=== PATIENT | male | born 1965 | race American Indian/Alaskan Native ===

== ENCOUNTER 2020-03-23 22:49 | Inpatient (IN) | payer BC, OTHER ==
[~2020-03-23] VITALS: Ht 190.5 cm; Wt 126.8 kg
--- OUTSIDE RECORDS SUMMARY | ~2020-03-23 | XMS | Encounter Summary ---
Demographics + + + | Address | [address] | | | [place] [address] | + + + | Home Phone | | + + + | Preferred Language | Unknown | + + + | Marital Status | Unknown | + + + | Jewish Affiliation | Unknown | + + + | Race | Unknown | + + + | Ethnic Group | Unknown | + + + Author + + + | Author | [facility] | | | and [place] | + + + | Organization | [facility] | | | and [place] | + + + | Address | Unknown | + + + | Phone | Unavailable | + + + Care Team Providers + +------+ + | Care Informal Waiter/Waitress Name | Role | Phone | + +------+ + PCP | Unavailable | + +------+ + Encounter Details +--------+ + + + + | Date | Type | Department | Care Team | Description | +--------+ + + + + | 06/17/ | Hospital | [facility] | Minh Sahu | | | 2003 | Encounter | MED CTR SLEEP | MD Emily [address] | | | | | [place] [address] | [place] [facility] | | | | | [place] | [place] [address] | | | | | [address] | [phone] | | | | | [phone] | | | +--------+ + + + + Social History + +-------+ +--------+------+ | Tobacco Use | Types | Packs/Day | Years | Date | | | | | Used | | + +-------+ +--------+------+ | Never Assessed | | | | | + +-------+ +--------+------+ + + + | Sex Assigned at | Date Recorded | | | | + + + | Not on file | | + + + documented as of this encounter Plan of Treatment Not on filedocumented as of this encounter Visit Diagnoses Not on filedocumented in this encounter"
--- OUTSIDE RECORDS SUMMARY | ~2020-03-23 | XMS | Clinical Summary ---
Demographics + + + | Address | [address] | | | [place] [address] | + + + | Home Phone | | + + + | Preferred Language | Unknown | + + + | Marital Status | Unknown | + + + | Taoism Affiliation | Unknown | + + + | Race | Unknown | + + + | Ethnic Group | Unknown | + + + Author + + + | Author | [facility] | | | and [place] | + + + | Organization | [facility] | | | and [place] | + + + | Address | Unknown | + + + | Phone | Unavailable | + + + Care Team Providers + +------+ + | Care Turntable Worker Name | Role | Phone | + +------+ + PCP | Unavailable | + +------+ + Allergies Not on File Medications Not on file Active Problems Not on file Social History + +-------+ +--------+------+ | Tobacco [...] on file | | + + + Last Filed Vital Signs Not on file Plan of Treatment + + +-------+ + | Health Maintenance | Due Date | Last | Comments | | | | Done | | + + +-------+ + | Vaccine: | | | | | Dtap/Tdap/Td (1 - | 3 | | | | Tdap) | | | | + + +-------+ + | Vaccine: Zoster (1 | | | | | of 2) | 4 | | | + + +-------+ + | Vaccine: Influenza | | | | | (#1) | 0 | | | + + +-------+ + Results Not on filefrom Last 3 Months"
--- OUTSIDE RECORDS SUMMARY | ~2020-03-23 | XMS | Encounter Summary ---
Demographics + + + | Address | [address] | | | [place] [address] | + + + | Home Phone | | + + + | Preferred Language | Unknown | + + + | Marital Status | Unknown | + + + | Synagogue Affiliation | Unknown | + + + | Race | Unknown | + + + | Ethnic Group | Unknown | + + + Author + + + | Author | [facility] | | | and [place] | + + + | Organization | [facility] | | | and [place] | + + + | Address | Unknown | + + + | Phone | Unavailable | + + + Care Team Providers + +------+ + | Care Buggy Driver Name | Role | Phone | + +------+ + PCP | Unavailable | + +------+ + Encounter Details +--------+ + + + + | Date | Type | Department | Care Team | Description | +--------+ + + + + | 12/27/ | [facility] | [facility] | Hebert Key MD | | | 2006 | Encounter | MED CTR GENERIC OP | [address], [place] | | | | | CONV DEPT [address] | [address] [place], [place] | | | | | [place], | [address] | | | | | [place] [address] | | | | | | [phone] | | | +--------+ + + + [...]
--- OUTSIDE RECORDS SUMMARY | ~2020-03-23 | XMS | Encounter Summary ---
Demographics + + + | Address | [address] | | | [place] [address] | + + + | Home Phone | | + + + | Preferred Language | Unknown | + + + | Marital Status | Unknown | + + + | Restorationism Affiliation | Unknown | + + + | Race | Unknown | + + + | Ethnic Group | Unknown | + + + Author + + + | Author | [facility] | | | and [place] | + + + | Organization | [facility] | | | and [place] | + + + | Address | Unknown | + + + | Phone | Unavailable | + + + Care Team Providers + +------+ + | Care Senior It Specialist Name | Role | Phone | + +------+ + PCP | Unavailable | + +------+ + Encounter Details +--------+ + + + + | Date | Type | Department | Care Team | Description | +--------+ + + + + | 12/27/ | [facility] | [facility] | Hebert Key MD | | | 2006 | Encounter | MED CTR GENERIC OP | [address], [place] | | | | | CONV DEPT [address] | [address] [place], [place] | | | | | [place], | [address] | | | | | [place] [address] | | | | | | [phone] | | | +--------+ + + + [...]
--- OUTSIDE RECORDS SUMMARY | ~2020-03-23 | XMS | Clinical Summary ---
Demographics + + + | Address | [address] | | | [place] [address] | + + + | Home Phone | | + + + | Preferred Language | Unknown | + + + | Marital Status | Unknown | + + + | Shinto Affiliation | Unknown | + + + | Race | Unknown | + + + | Ethnic Group | Unknown | + + + Author + + + | Author | [facility] | | | and [place] | + + + | Organization | [facility] | | | and [place] | + + + | Address | Unknown | + + + | Phone | Unavailable | + + + Care Team Providers + +------+ + | Care Rotor Pilot Name | Role | Phone | + [...]
--- OUTSIDE RECORDS SUMMARY | ~2020-03-23 | XMS | Encounter Summary ---
Demographics + + + | Address | [address] | | | [place] [address] | + + + | Home Phone | | + + + | Preferred Language | Unknown | + + + | Marital Status | Unknown | + + + | Muslim Affiliation | Unknown | + + + | Race | Unknown | + + + | Ethnic Group | Unknown | + + + Author + + + | Author | [facility] | | | and [place] | + + + | Organization | [facility] | | | and [place] | + + + | Address | Unknown | + + + | Phone | Unavailable | + + + Care Team Providers + +------+ + | Care College Scouting Coordinator Name | Role | Phone | + +------+ + PCP | Unavailable | + +------+ + Encounter Details +--------+ + + + + | Date | Type | Department | Care Team | Description | +--------+ + + + + | 06/17/ | Hospital | [facility] | Minh Sahu | | | 2003 | Encounter | MED CTR SLEEP | MD Emily [address] | | | | | [place] [address] | [place] [facility] | | | | | [place] | [place] [address] | | | | | [address] | [phone] | | | | | [phone] | | | +--------+ + + + [...]
--- OUTSIDE RECORDS SUMMARY | ~2020-03-23 | XMS | Encounter Summary ---
Demographics + + + | Address | [address] | | | [place] [address] | + + + | Home Phone | | + + + | Preferred Language | Unknown | + + + | Marital Status | Unknown | + + + | Voodoo Affiliation | Unknown | + + + | Race | Unknown | + + + | Ethnic Group | Unknown | + + + Author + + + | Author | [facility] | | | and [place] | + + + | Organization | [facility] | | | and [place] | + + + | Address | Unknown | + + + | Phone | Unavailable | + + + Care Team Providers + +------+ + | Care Balling Machine Operator Name | Role | Phone | + +------+ + PCP | Unavailable | + +------+ + Encounter Details +--------+ + + + + | Date | Type | Department | Care Team | Description | +--------+ + + + + | 05/07/ | Hospital | [facility] | Minh Sahu | | | 2004 | Encounter | MED CTR SLEEP | MD Emily [address] | | | | | [place] [address] | [place] [facility] | | | | | [place] | [place] [address] | | | | | [address] | [phone] | | | | | [phone] | | | +--------+ + + + [...]
--- OUTSIDE RECORDS SUMMARY | ~2020-03-23 | XMS | Clinical Summary ---
Demographics + + + | Address | [address] | | | [place] [address] | + + + | Home Phone | | + + + | Preferred Language | Unknown | + + + | Marital Status | Unknown | + + + | Christian Affiliation | Unknown | + + + | Race | Unknown | + + + | Ethnic Group | Unknown | + + + Author + + + | Author | [facility] | | | and [place] | + + + | Organization | [facility] | | | and [place] | + + + | Address | Unknown | + + + | Phone | Unavailable | + + + Care Team Providers + +------+ + | Care White Hat Hacker Name | Role | Phone | + [...]
--- OUTSIDE RECORDS SUMMARY | ~2020-03-23 | XMS | Encounter Summary ---
Demographics + + + | Address | [address] | | | [place] [address] | + + + | Home Phone | | + + + | Preferred Language | Unknown | + + + | Marital Status | Unknown | + + + | Mandaen Affiliation | Unknown | + + + | Race | Unknown | + + + | Ethnic Group | Unknown | + + + Author + + + | Author | [facility] | | | and [place] | + + + | Organization | [facility] | | | and [place] | + + + | Address | Unknown | + + + | Phone | Unavailable | + + + Care Team Providers + +------+ + | Care Auto Seat Cover Installer Name | Role | Phone | + +------+ + PCP | Unavailable | + +------+ + Encounter Details +--------+ + + + + | Date | Type | Department | Care Team | Description | +--------+ + + + + | 12/27/ | [facility] | [facility] | Hebert Key MD | | | 2006 | Encounter | MED CTR GENERIC OP | [address], [place] | | | | | CONV DEPT [address] | [address] [place], [place] | | | | | [place], | [address] | | | | | [place] [address] | | | | | | [phone] | | | +--------+ + + + [...]
--- OUTSIDE RECORDS SUMMARY | ~2020-03-23 | XMS | Encounter Summary ---
Demographics + + + | Address | [address] | | | [place] [address] | + + + | Home Phone | | + + + | Preferred Language | Unknown | + + + | Marital Status | Unknown | + + + | Orthodox Affiliation | Unknown | + + + | Race | Unknown | + + + | Ethnic Group | Unknown | + + + Author + + + | Author | [facility] | | | and [place] | + + + | Organization | [facility] | | | and [place] | + + + | Address | Unknown | + + + | Phone | Unavailable | + + + Care Team Providers + +------+ + | Care Recreational Sports Director Name | Role | Phone | + +------+ + PCP | Unavailable | + +------+ + Encounter Details +--------+ + + + + | Date | Type | Department | Care Team | Description | +--------+ + + + + | 05/07/ | Hospital | [facility] | Minh Sahu | | | 2004 | Encounter | MED CTR SLEEP | MD Emily [address] | | | | | [place] [address] | [place] [facility] | | | | | [address] | [place] [address] | | | | | [address] | [phone] | | | | | [phone] | | | +--------+ + + + [...]
--- OUTSIDE RECORDS SUMMARY | ~2020-03-23 | XMS | Encounter Summary ---
Demographics + + + | Address | [address] | | | [place] [address] | + + + | Home Phone | | + + + | Preferred Language | Unknown | + + + | Marital Status | Unknown | + + + | Rastafari Affiliation | Unknown | + + + | Race | Unknown | + + + | Ethnic Group | Unknown | + + + Author + + + | Author | [facility] | | | and [place] | + + + | Organization | [facility] | | | and [place] | + + + | Address | Unknown | + + + | Phone | Unavailable | + + + Care Team Providers + +------+ + | Care Mock Up Maker Name | Role | Phone | + +------+ + PCP | Unavailable | + +------+ + Encounter Details +--------+ + + + + | Date | Type | Department | Care Team | Description | +--------+ + + + + | 05/07/ | Hospital | [facility] | Minh Sahu | | | 2004 | Encounter | MED CTR SLEEP | MD Emily [address] | | | | | [place] [address] | [place] [facility] | | | | | [address] [place] | [place] [address] | | | | | [address] | [phone] | | | | | [phone] | | | +--------+ + + + [...]
--- OUTSIDE RECORDS SUMMARY | ~2020-03-23 | XMS | Encounter Summary ---
Demographics + + + | Address | [address] | | | [place] [address] | + + + | Home Phone | | + + + | Preferred Language | Unknown | + + + | Marital Status | Unknown | + + + | Quaker Affiliation | Unknown | + + + | Race | Unknown | + + + | Ethnic Group | Unknown | + + + Author + + + | Author | [facility] | | | and [place] | + + + | Organization | [facility] | | | and [place] | + + + | Address | Unknown | + + + | Phone | Unavailable | + + + Care Team Providers + +------+ + | Care Adjunct Sociology Professor Name | Role | Phone | + +------+ + PCP | Unavailable | + +------+ + Encounter Details +--------+ + + + + | Date | Type | Department | Care Team | Description | +--------+ + + + + | 06/17/ | Hospital | [facility] | Minh Sahu | | | 2003 | Encounter | MED CTR SLEEP | MD Emily [address] | | | | | [place] [address] | [place] [facility] | | | | | [place] [place] | [place] [address] | | | | | [address] | [phone] | | | | | [phone] | | | +--------+ + + + [...]
[~2020-03-23 22:49] MED LIST: ACETAMINOPHEN325 M1 PO; ADVIL200 M1 PO; FISH OIL 1,0001 EAC1 PO; FLONASE2 SPRAY NS; FLUTICASONE PRO16 GM NS; LEVOTHYROXINE100 MCG PO; LIPITOR10 MG PO; LISINOPRIL10 MG PO; LISINOPRIL5 MG PO; LORATADINE10 MG PO; MOBIC7.5 MG PO; NASACORT10.8 ML NAS; NORCO 10-325 T1 EACH PO; NORCO 5-325 TA1 EACH PO; OMEPRAZOLE20 MG PO; VITAMIN D31000 UNIT PO; VITAMIN D5000 UNIT PO; ZESTRIL5 MG PO
--- NOTE | 2020-03-24 04:30 | NUR ---
PT TO ROOM 116 VIA STRETCHER. ALERT AND ORIENTED. ABLE TO TRANSFER SELF TO BED. GAIT STEADY. ORDERS RECEIVED. IVF INFUSING. O2 2L/NC PLACED FOR HX SLEEP APNEA. PT DENIES PAIN OR NAUSEA. BOWEL TONES HYPOACTIVE. ORIENTATION TO ROOM AND NURSE CALL LIGHT GIVEN. PT DENIES QUESTIONS OR CONCERNS. WHITE BOARD UPDATED. CALL LIGHT IN REACH.
--- NOTE | 2020-03-24 09:10 | NUR ---
PT IN BED AFTER AB XRAY. DENIES PAIN. BOLUS RUNNING. ADMINISTERED MORNING MEDS. FINGDING SCD MACHINE AND THEN WILL APPLY. BT ACTIVE. HAD REBECCA GONZALEZ.
--- NOTE | 2020-03-24 09:48 | NUR ---
PATIENT RESTING IN BED. DOES NOT WANT TO AMBULATE TO CHAIR. CALL LIGHT WITHIN REACH. NO FURTHER NEEDS AT THIS TIME.
--- NOTE | 2020-03-24 10:35 | NUR ---
PT CALLED FOR BEEPING PUMP. BOLUS COMPLETED. DENIES FURTHER CONERNS.
--- NOTE | 2020-03-24 11:39 | NUR ---
PT RESTING WITH EYES CLOSED. LIGHTLY SNORING. IVF RUNNING.
--- NOTE | 2020-03-24 13:11 | NUR ---
PATIENT RESTING IN BED. INDEPENDENT IN THE ROOM. CALL LIGHT WITHIN REACH. NO FURTHER NEEDS AT THIS TIME.
--- NOTE | 2020-03-24 14:00 | NUR ---
PT PUMP BEEPING. FIXED AND OFFERED TO MOVE IV TO DIFFERENT LOCATION. PT DECLINED ATT.
--- NOTE | 2020-03-24 16:08 | NUR ---
IN ROOM TALKING TO PT AND HIS REGARDING CURRENT ILLNESS. DR ATKINS IN ROOM TO DISCUSS XRAY WITH PT. ANSWERED QUESTIONS. GAVE PT ICE WATER AND JELLO. INSTRUCTED TO GO SLOW.
--- NOTE | 2020-03-24 16:13 | HP ---
[facility] [address] [place], [place] [address] Signed ADMISSION DATE: 03/24/2020 DATE OF VISIT: March 24, 2020, REASON FOR ADMISSION: Small bowel obstruction. 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 He began having mid abdominal pain early in the afternoon, which was sharp and constant more on the left than on the right with vomiting at least three times without associated diarrhea. He had not had similar symptoms in the past. He has had two hernia repairs at the same site due to recurrence by Dr. Soria in the past year. This was noted with a supraumbilical incision. Review of the operative report on October of 2019 describes a recurrent supraumbilical hernia 5 x 2 cm with use of intraabdominal 11 x 14 cm mesh. This was described as an 11 x 14 cm oval Ventrio mesh(? Ventralex). Interrupted sutures were used with Prolene. The patient was evaluated by Dr. Pastrana in the strip picker hours and was admitted to my service with findings on CT scan consistent with small-bowel obstruction. My review of his CT scan shows a fair amount of inflammatory changes in the region of the previous hernia repair. There was no abrupt transition point there, however. Interpretation by the radiologist confirming dilated fluid-filled loops of small bowel showing a gradual transition point to the anterior abdomen. Notably, there were enlarged bilateral iliac chain lymph nodes right greater than left with concern for possible metastatic disease. A plan for nasogastric tube was made; however, he does not have one in place at this time. He is said to have had bleeding and pain and so forth and prior sinus surgery and therefore, he has been for the past number of hours on the desir without a nasogastric tube. He does feel better in fact. He has had no nausea or vomiting and has had some diarrhea. REVIEW OF SYSTEMS: He denies any shortness of breath or chest pain. Still has mild pain in the mid abdomen. PHYSICAL EXAMINATION: GENERAL: Large white man appears to be comfortable. Electronically Signed By: JOSELYN ATKINS MD 03/24/20 1613 PATIENT NAME: GREGORIA CHAMPION HISTORY AND PHYSICAL DATE OF : 63 REPORT #: [id number] PHYSICIAN: JOSELYN ATKINS MD PCP: MARILEE DALY REPORT IS CONFIDENTIAL AND NOT TO BE RELEASED WITHOUT AUTHORIZATION [facility] [address] [place], [place] [address] Signed VITAL SIGNS: He is 6 feet 3 inches tall, 126 kg. BMI is 34.9, temperature is 98.3, pulse 99, blood pressure 143/94, room air saturations 90%. COVID test is pending. Trachea is midline. He has an overbite. Has markedly dry mucous membranes. ABDOMEN: Somewhat obese, but generally soft. There is a well-healed supraumbilical incision with no sign of palpable hernia. EXTREMITIES: Show no clubbing, cyanosis, or edema. LABORATORY DATA: At 11:00 p.m. last night, white count of 11.4, hematocrit 54.3, platelets 221,000. Chem profile is essentially normal, but creatinine is elevated to 1.17. Electrolytes are normal. Albumin is 5.3, total protein 8.6. Urine shows specific gravity 1.025, 5 white cells per high-power field. COVID test is pending. I have reviewed the CT scan in detail as well as the report and so on. ASSESSMENT: The patient is considered to have low-grade bowel obstruction with transition point likely at the site of previous recurrent epigastric hernia repair. Note is made of implantation of mesh in the area. This may resolve on its own and continued bowel rest and IV fluids would be appropriate. We will obtain an abdominal x-ray this morning to assess for distention of the bowel. If he still has significant need for nasogastric tube (which he might well), I will place it myself as I am quite confident I can place it effectively. He will need DVT prophylaxis as well and a bolus of fluid as he is clinically still dehydrated. MD RICHARD Wheatley/MODL /[id number] cc: Marilee Pastrana MD Electronically Signed By: JOSELYN ATKINS MD 03/24/20 1613 PATIENT NAME: GREGORIA CHAMPION HISTORY AND PHYSICAL DATE OF : 63 REPORT #: [id number] PHYSICIAN: JOSELYN ATKINS MD PCP: MARILEE DALY REPORT IS CONFIDENTIAL AND NOT TO BE RELEASED WITHOUT AUTHORIZATION [address] [address] Signed Emerson Soria MD Copies: MARILEE DALY SHELDON MD BOWER, ANDREW L MD ~ Electronically Signed By: JOSELYN ATKINS MD 03/24/20 1613 PATIENT NAME: GREGORIA CHAMPION HISTORY AND PHYSICAL DATE OF : 63 REPORT #: [id number] PHYSICIAN: JOSELYN ATKINS MD PCP: MARILEE DALY REPORT IS CONFIDENTIAL AND NOT TO BE RELEASED WITHOUT AUTHORIZATION
--- NOTE | 2020-03-24 17:37 | NUR ---
PT'S IV CONTINUALLY BEEPING, TOO CLOSE TO AC. PLACED NEW ONE IN BACK OF RIGHT HAND. PT TOLERATED WELL. REMOVED OLD IV.
--- NOTE | 2020-03-24 20:03 | NUR ---
REPORT RECEIVED FROM DAY SHIFT RN. PT LYING IN BED, ALERT AND ORIENTED. DENIES PAIN OR NAUSEA. IVF INFUSING. CL LIQ PROVIDED. NO FURTHER NEEDS AT THIS TIME. WHITE BOARD UPDATED. CALL LIGHT IN REACH.
--- NOTE | 2020-03-24 20:39 | PATH ---
[facility] [address] [facility] [place], [place] [address] Signed ORDERING PHYSICIAN: Alonzo Johnston MD PATIENT NAME: GREGORIA CHAMPION GENDER: Abel : 1965 SPECIMEN(S): No Source Given MOLECULAR PATHOLOGY RESULTS: SARS-CoV-2 Not Detected ADDITIONAL NOTES.: The [place] Fusion SARS-CoV-2 Assay is a multiplex real-time PCR (RT-PCR) in vitro diagnostic test intended for the qualitative detection of RNA from SARS-CoV-2 from individuals who meet COVID-19 clinical and/or epidemiological criteria. In general, SARS-CoV-2 RNA can be detected during the acute phase of infection. Positive results indicate the presence of SARS-CoV-2 RNA. Clinical correlation with patient history and other diagnostic information is necessary to determine patient infection status. Positive results do not rule out bacterial infection or co-infection with other viruses. Negative results do not preclude SARS-CoV-2 infection and should not be used as the sole basis for patient management decisions. Negative results must be combined with other clinical observations, patient history, and epidemiological information. The [place] Fusion SARS-CoV-2 Assay is not yet approved or cleared by the [place] FDA. When there are no FDA-approved or cleared tests available, and other criteria are met, FDA can make tests available under an emergency access mechanism called an Emergency Use Authorization (EUA). The EUA for this test is supported by the [place] of Health and Human Service's (HHS's) declaration that circumstances exist to justify the emergency use of in vitro diagnostics for the detection and/or diagnosis of the virus that causes COVID-19. This EUA will remain in effect for the duration of the COVID-19 declaration justifying emergency of IVDs, unless it is terminated or revoked by FDA, after which the test may no longer be used. The [place] Fusion SARS-CoV-2 Assay is for use only under EUA in US laboratories certified under the Clinical Laboratory Improvement Amendments of 1988 (CLIA) to perform high complexity tests. [facility] is certified under CLIA to perform high complexity PATIENT NAME: GREGORAI CHAMPION PATHOLOGY DATE OF : 63 REPORT #: [id number] PHYSICIAN: MEE HAM PCP: PATRICIA DALY REPORT IS CONFIDENTIAL AND NOT TO BE RELEASED WITHOUT AUTHORIZATION [facility] [address] [place] [id number] Signed clinical laboratory testing. PERFORMING LABORATORY.: Molecular testing was performed by [facility] [address] [place], [place] [address] [address] (Steel Division Supervisor: Miguel Soto D.O.; CLIA#: [id number]) Diagnostician: System Interface Pathologist Electronically Signed 03/24/2020 Copies: ~ PATIENT NAME: GREGORIA CHAMPION PATHOLOGY DATE OF : 63 REPORT #: [id number] PHYSICIAN: MEE PATHOLOGY PCP: PATRICIA DALY REPORT IS CONFIDENTIAL AND NOT TO BE RELEASED WITHOUT AUTHORIZATION
--- NOTE | 2020-03-24 21:25 | NUR ---
EVENING ASSESSMENT COMPLETE. MEDICATIONS ADMINISTERED PER EMAR. PT DENIES PAIN OR NAUSEA. REPORTS PASSING GAS. BOWEL TONES ACTIVE. LIQUID BM X 1 THIS EVENING. VS AND I&O COMPLETE. CLEAR LIQUIDS PROVIDED. NO FURTHER NEEDS. CALL LIGHT IN REACH.
--- NOTE | 2020-03-25 00:45 | NUR ---
PT FRANCISCA SOLORZANO INDEPENDENTLY. HANH WELL. DENIES NEEDS.
--- NOTE | 2020-03-25 02:34 | NUR ---
PT RESTING IN BED WITH EYES CLOSED, NAD.
--- NOTE | 2020-03-25 05:10 | NUR ---
PT SITTING IN RECLINER. VS AND I&O COMPLETE. PRN ADMINISTERED FOR C/O HEAD ACHE. CL LIQ PROVIDED. PT DENIES ABD PAIN OR NAUSEA. BOWEL TONES ACTIVE. REPORTS PASSING GAS. NO FURTHER NEEDS. CALL LIGHT IN REACH.
--- NOTE | 2020-03-25 07:20 | NUR ---
BACK FROM DI, NO C/O PAIN OR N/V, WALKING IN ROOM
--- NOTE | 2020-03-25 08:39 | NUR ---
PATIENT UP IN CHAIR. DECLINED AM CARE. INDEPENDENT IN ROOM. WHITE BOARD UPDATED. CALL LIGHT WITHIN REACH. NO FURTHER NEEDS AT THIS TIME.
--- NOTE | 2020-03-25 09:45 | NUR ---
DR ATKINS IN ROOM, IV SA PER ORDERS, PT TO BE PLACED ON REG DIET A TRIAL, EXPLAINED TO PT BY BOTH DR ATKINS AND THIS RN, STATED UNDERSTANDING. UP IN CHAIR, COOP WITH ASSESSMENT, NO C/O PAIN, ON ROOM AIR.
--- NOTE | 2020-03-25 12:00 | NUR ---
WALKING INROOM, NO C/O N/V ORPAIN. EATING SNDWICH, CALL LIGHT AT BEDSIDE, TOLERATING FLUIDS WELL, OM REGULAR DIET
--- NOTE | 2020-03-25 13:11 | NUR ---
pt up in chair, viewing i phone, denies c/o pain or n/v. tolerating his sandwich, no emesis. fluids and call light at bedside
--- NOTE | 2020-03-25 13:19 | NUR ---
PATIENT UP IN CHAIR. INDEPENDENT IN ROOM. AMBULATED IN HALLWAY. CALL LIGHT WITHIN REACH. NO FURTHER NEEDS AT THIS TIME.
--- NOTE | 2020-03-25 15:25 | NUR ---
IN CHAIR, VISITING WITH FAMILY, NO C/O PAIN, NO N/V, FLUIDS AND CALL LIGHT AT BEDSIDE
--- NOTE | 2020-03-25 16:45 | NUR ---
DC INSTRUCTIONS GIVEN VERBAL AND WRITTEN, STATED UNDERSTANDING, NO C/O PAIN OR N/V. ALL QUESTIONS R/T DIET AND S/SX TO CALL MD FOR ANSWERED. BOTH AND PT STATED UNDERSTANDING. IV DC'D TIP INTACT. 2X2 IN PLACE R THI. ELAINE PHARMACIST IN ROOM TALKING TO PT ABOUT DC MEDS. STATED UNDERSTANDING. PT STATED HE ORDERED DINNER AND WILL CALL WHEN HE IS DONE AND READY TO BE DC'D
--- NOTE | 2020-03-26 18:24 | DS ---
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 He had been having mid abdominal pain early in the afternoon, which worsened over time, associated with vomiting at least 3 times without associated diarrhea. He has had 2 hernias repaired in the supraumbilical area (epigastric hernias) by Dr. Saravanan Valdez in the past year. Review of his operative report of October of 2019 described recurrent supraumbilical hernia, which was 5 x 2 cm. An intraabdominal mesh 11 x 14 cm was implanted described as a Ventrio mesh. Interrupted sutures were used. Evaluation by Dr. Pastrana showed findings on CT scan consistent with small-bowel obstruction. The area of inflammation of the prior hernia repair appears to be the area of transition. It is not an abrupt transition, however, dilated fluid-filled loops of small bowel showing gradual transition to the anterior abdomen were noted and therefore, considered to have bowel obstruction on that basis. He was noted additionally to have bilateral enlarged iliac chain lymph nodes on the right greater than the left. Close review of these nodes showed them to be only 1.5 cm in size and thus extremely unlikely to be of clinical concern, and very unlikely to be metastatic cancer as was considered by the radiologist. Attempts at passage of nasogastric tube were unsuccessful. He was admitted for further evaluation and care. PERTINENT PHYSICAL EXAMINATION: GENERAL: Showed a large 6 foot 3 inches, 126 kg man. Temperature is 98.3, pulse 99, blood pressure 143/94, room air saturations were 90%. COVID test ultimately negative. ABDOMEN: Obese, but generally soft. There is a well-healed supraumbilical incision with no sign of palpable hernia. HOSPITAL COURSE: He was admitted, given fluid resuscitation and monitored. Although, he did not tolerate passage of nasogastric tube by nursing personnel, he did seem to have improvement quite promptly without one. The tube was left out on that basis. A day 2 followup KUB was ordered, which showed one dilated loop of small bowel, which had air, but it did appear improved. He was begun on a liquid diet, and by March 25, 2020, tolerating that diet well and therefore advanced a solid diet. A follow up abdominal x-ray showed resolution of small-bowel obstruction findings. He is discharged home, now tolerating a regular diet with no sign of distention, no Electronically Signed By: JOSELYN ATKINS MD 03/26/20 1824 PATIENT NAME: GREGORIA CHAMPION DISCHARGE SUMMARY DATE OF : 63 REPORT #: [id number] PHYSICIAN: JOSELYN ATKINS MD PCP: PATRICIA DALY REPORT IS CONFIDENTIAL AND NOT TO BE RELEASED WITHOUT AUTHORIZATION [address] [address] Signed abdominal pain, particularly and doing well. As the patient did have elevated serum protein and some enlargement of the iliac lymph nodes, SPEP was ordered. The serum protein electrophoresis results were pending at time of discharge. Notably, his albumin and total protein decreased with fluid resuscitation and on March 24 were noted to be total protein of 7.1 with an albumin of 4.5. His globulin was 2.6. As regards to discharge, he is advised to maintain a regular diet. If he should have recurrent symptoms suggestive of obstruction, he will call me or Dr. Valdez or return to the ER per his preference. He has no specific restrictions. DISCHARGE MEDICATIONS: 1. Omeprazole 20 mg p.o. daily. 2. Atorvastatin 10 mg p.o. daily. 3. Advil 200 mg capsule 4 tabs daily as needed for pain. 4. Synthroid 100 mcg p.o. daily. 5. Fluticasone spray as needed nasally 1-2 sprays for allergies. 6. Lisinopril 5 mg p.o. daily. 7. Tylenol 325 mg 1-2 q.4-6 hours as needed for pain. He is advised to discontinue hydrocodone ([place]). DISCHARGE DIAGNOSES: 1. Small bowel obstruction, apparently related to area of prior recurrent epigastric hernia repair. Resolution with bowel rest and intravenous fluid administration. 2. Obesity. 3. History of epigastric hernia repair. 4. Enlarged iliac lymph nodes (1.5 cm) of unlikely clinical significance. 5. Seasonal rhinitis. 6. Hypertension. 7. Gastroesophageal reflux. 8. Hypothyroidism. FOLLOWUP: We will follow up as needed for symptoms of bowel obstruction. Review of his CT scan findings of the iliac lymph nodes of only 1.5 cm are not of clinical concern in my medical opinion and I do not recommend specific follow up of them. MD RICHARD Wheatley/CITLALI /[id number] Electronically Signed By: JOSELYN ATKINS MD 03/26/20 1824 PATIENT NAME: GREGORIA CHAMPION DISCHARGE SUMMARY DATE OF : 63 REPORT #: [id number] PHYSICIAN: JOSELYN ATKINS MD PCP: PATRICIA DALY REPORT IS CONFIDENTIAL AND NOT TO BE RELEASED WITHOUT AUTHORIZATION [facility] [address] [place] [address] Signed cc: MD Ryne Vang MD Elizabeth Sieders Copies: SARAVANAN VALDEZ MD, SHELDON MD SIEDERS, ELIZABETH ~ Electronically Signed By: JOSELYN ATKINS MD 03/26/20 1824 PATIENT NAME: GREGORIA CHAMPION DISCHARGE SUMMARY DATE OF : 63 REPORT #: [id number] PHYSICIAN: JOSELYN ATKINS MD PCP: PATRICIA DALY REPORT IS CONFIDENTIAL AND NOT TO BE RELEASED WITHOUT AUTHORIZATION
== END 2020-03-25 17:40 | disposition home or self-care (01) | DRG 390 ==
LOC: ED 22:49 → MS 22:51 → ED 03-24 02:08 → MS 03-24 08:22
PROVIDERS: ADMIT Surgery
DX: K56.609 Unspecified intestinal obstruction, unspecified as to partial versus complete obstruction (principal); E66.9 Obesity, unspecified; R59.0 Localized enlarged lymph nodes; J31.0 Chronic rhinitis; I10 Essential (primary) hypertension; K21.9 Gastro-esophageal reflux disease without esophagitis; E03.9 Hypothyroidism, unspecified; Z20.828 Contact with and (suspected) exposure to other viral communicable diseases; Z68.34 Body mass index [BMI] 34.0-34.9, adult
CPT/HCPCS: 36415; 71045; 74018; 74177; 80053; 81001; 83690; 83735; 84155; 84165; 85025; 96361; 96375; 99285-25; C9803; G0378; J1170; J1200; J1644; J1790; J1885; J2405; J2550; J7030; J7121; Q9967

== ENCOUNTER 2021-03-31 16:31 | Emergency (ER) | payer BC, OTHER ==
[~2021-03-31] VITALS: Ht 190.5 cm; Wt 126.8 kg
[2021-03-31] MEDS ORDERED: RAPAFLO8 MG PO (16:56)
--- NOTE | 2021-03-31 18:47 | EKG ---
[facility] [address] [facility] [place] [address] Signed Normal sinus rhythm Left posterior fascicular block Abnormal QRS-T angle, consider primary T wave abnormality Abnormal ECG When compared with ECG of 02-NOV-2019 13:02, Left posterior fascicular block is now present Criteria for Inferior infarct are no longer present Confirmed by FIDELIA BORGES DO ([id number]) on 03/31/2021 6:46:50 PM Electronically Signed By: FIDELIA BORGES DO 03/31/21 1847 PATIENT NAME: GREGORIA CHAMPION Electrocardiogram DATE OF : 63 PHYSICIAN: FIDELIA BORGES DO REPORT #: [id number] REPORT IS CONFIDENTIAL AND NOT TO BE RELEASED WITHOUT AUTHORIZATION
== END 2021-03-31 20:02 | disposition home or self-care (01) ==
LOC: ED 16:31
DX: B34.9 Viral infection, unspecified (principal); Z20.822 Contact with and (suspected) exposure to COVID-19; E78.00 Pure hypercholesterolemia, unspecified; K21.9 Gastro-esophageal reflux disease without esophagitis; I10 Essential (primary) hypertension; Z88.8 Allergy status to other drugs, medicaments and biological substances; Z91.048 Other nonmedicinal substance allergy status; Z79.899 Other long term (current) drug therapy
CPT/HCPCS: 71045; 80053; 83735; 84484; 85025; 93005; 93010; 99285-25; C9803; U0003

== ENCOUNTER 2021-08-03 05:50 | Day surgery (SDC) | payer BC, OTHER ==
[~2021-08-03] VITALS: Ht 190.5 cm; Wt 126.0 kg
[~2021-08-03 05:50] MED LIST changes: +RAPAFLO8 MG PO
[2021-08-03] MEDS ORDERED: MULTI-VITAMIN1 EACH PO (06:04)
--- NOTE | 2021-08-03 10:07 | NUR ---
PT ALERT, ORIENTED AND SUPPORTED BY HIS ONEAL. RATHER QUIET, WHICH I FEEL IS PT'S NATURE. ALL QUESTIONS ASKED ANSWERED, ONEAL NEEDS TO GO HOME AND WILL RETURN SHORTLY. PT REQUESTED PRAYER, WILL FOLLOW NEEDED
--- NOTE | 2021-08-03 10:22 | NUR ---
08/03/21 1022 Richa Delarosa 0923 PT ARRIVED TO PACU ON 10L VIA MASK, PT REACTIVE TO PAINFUL STIMULI, VSS. ORAL AIRWAY IN PLACE AND RESP EVEN AND UNLABORED. O2 DECREASED O2 8L. 0952 PT WAKES AND OPEN HIS EYES, ORAL AIRWAY REMOVED. 0955 O2 MASK REMOVED. 1006 HOB INCREASED, PT GRAMACING AND GRABBING BED RAILS. PAIN MEDICATION GIVEN PER EMAR. EDUCATION GIVEN ON DEEP BREATHING. CBI LIGHT PINK IN COLOR AND RATE INCREASED. 1011 O2 DECREASED TO 89%, DEEP BREATHING ENCOURAGED. 1016 MD AT BEDSIDE TALKING TO PT. 1019 PT GRMACING AND REPORTS THE NEED TO VOID. PAIN MEDICAITON GIVEN PER EMAR. 1020 PT REPORTS VOID FEELING DECREASING AND PT APPEARS TO BE IN LESS PAIN.
--- NOTE | 2021-08-03 11:16 | NUR ---
PATIENT TO MED SURG AT 1050, TRANSFERRED TO BED VIA 3 STAFF. SPOUSE IN ROOM WITH PATIENT. PATIENT IS ABLE TO REPOSITION SELF IN BED. CBI IS GOING AT A SLOW DRIP TO KEEP URINE PINK. PATIENT REPORTS URETHRA PAIN OF 3/10 AND A CONSTANT URGE TO VOID. CRACKERS AND ICE WATER TO BEDSIDE TABLE.
--- NOTE | 2021-08-03 11:37 | NUR ---
PATIENT GIVEN 0.5MG IV DILAUDID FOR 4/10 URETHRA PAIN. PATIENT IS EATING CRACKERS AND SIPS OF WATER.
--- NOTE | 2021-08-03 12:17 | NUR ---
PATIENT REPORTS IMPROVED PAIN AFTER DILAUDID, IS EATING CRACKERS, NO NAUSEA. URINE IS LIGHT PINK AND DRIP SLOWED SLIGHTLY.
[2021-08-03] MEDS ORDERED: LISINOPRIL10 MG PO (13:09)
--- NOTE | 2021-08-03 14:59 | NUR ---
PATIENT IS DOING WELL, PAIN IS MINIMAL. CONTINUING SLOW DRIP CBI TO KEEP URINE WATERMELON PINK. PATIENT IS TOLERATING CRACKERS AND PUDDING, NO NAUSEA, AND HAS ORDERED A REGULAR DINNER.
--- NOTE | 2021-08-03 16:56 | NUR ---
PATIENT TITRATED TO ROOM AIR, O2 SATS ARE 96%. PATIENT GIVEN ONE PERCOCET FOR 4/10 URETHRAL PAIN. PATIENT DENIES OTHER NEEDS. URINE CONTINUES TO BE WATERMELON COLOR WITH SLOW CBI DRIP RATE.
--- NOTE | 2021-08-03 17:49 | NUR ---
medications reconciled
--- NOTE | 2021-08-03 18:18 | NUR ---
PATIENT WITH 1100 PINK URINE.
--- NOTE | 2021-08-03 18:32 | NUR ---
PATIENT IN BED WATCHING TV, VISITOR IN ROOM. VITALS AND I&O'S CHARTED. FRESH WATER GIVEN. CALL LIGHT IN REACH. NO FURTHER NEEDS AT THIS TIME.
--- NOTE | 2021-08-03 19:20 | NUR ---
REPORT RECEIVED FROM CHELLE HAJI. pt RESTING IN BED. DARK PINK COLOR IN TUBING, CBI TITRATED TO SLOW DRIP AT THIS TIME FROM CLAMPED. IVF INFUSING WNL. PRESCRIPTION PROVIDED TO SO THAT SHE CAN DROP OFF IN AM FOR PHARMACY TO FILL ORDER BEFORE PICKING pt UP. QUESTIONS ANSWERED. pt RATES PAIN 2/10, "JUST UNCOMFORTABLE". IN ROOM. CALL LIGHT IN REACH. NO ADDITIONAL REQUESTS.
[2021-08-03] MEDS ORDERED: LEVOFLOXACIN500 MG PO (19:36)
[2021-08-03] MEDS ORDERED: OXYCODONE HCL5 MG PO (19:37)
--- NOTE | 2021-08-03 21:08 | NUR ---
IN pt ROOM FOR MEDICATION ADMINISTRATION. IV SITE FLUSHED WNL. IVF INFUSING ORDERED. DE LA TORRE CARE COMPLETE. EDUCATION PROVIDED. pt ASSISTED TO REPOSITION, CHUX CHANGED, SMALL AMT SANGUINOUS DRAINAGE ON CHUX. DE [place]OR[place] DRAINING DARK PINK, MEDIUM CLOT NOTED, CBI TITRATED TO LIGHT PINK DRAINAGE. pt DENIES NEED FOR PRN PAIN MEDICATIONS AT THIS TIME. CALL LIGHT IN REACH. SPO2 WNL ON RA. VSS.
--- NOTE | 2021-08-03 22:15 | NUR ---
CHECKED ON pt. RESTING IN BED AWAKE WATCHING TV. pt RATES PAIN 3-4/10 AT THIS TIME. DENIES NEED FOR PAIN MEDICATION. CBI WITH CLEAR URINE, SOME SMALL CLOTS IN TUBE. SLOW DRIP CBI INFUSING. IVF INFUSING WNL. CALL LIGHT IN REACH.
--- NOTE | 2021-08-03 23:58 | NUR ---
CALL LIGHT ANSWERED. pt STATES UNABLE TO SLEEP DUE TO DISCOMFORT. RATES PAIN 4-5/10 IN RANDAL AREA. PRN PAIN MEDICATION ADMINISTERED. VSS. CRACKERS PROVIDED WITH PAIN MEDICATION. CBI RATE SLOWED, CLEAR URINE NOTED IN TUBING, NO CLOTS. CALL LIGHT IN REACH. IVF INFUSING WNL.
--- NOTE | 2021-08-04 02:05 | NUR ---
CALL LIGHT ANSWERED. SPD ALARM ON CPOX ALARMING, SETTINGS ADJUSTED. SPO2 WNL ON RA. ICE WATER REFILLED PER REQUEST. CBI CLAMPED AT THIS TIME, CLEAR URINE IN TUBING. CALL LIGHT IN REACH.
--- NOTE | 2021-08-04 04:04 | NUR ---
CHECKED ON pt. RESTING IN BED. DE LA TORRE DRAINING CLEAR/PINK TINGED URINE WITH CBI CLAMPED. LIGHTS OFF IN ROOM. NO DISTRESS NOTED.
--- NOTE | 2021-08-04 04:46 | NUR ---
CALL LIGHT ANSWERED. SBA TO RESTROOM FOR BM. INSTRUCTED TO USE CALL LIGHT WHEN FINISHED. pt VERBALIZES UNDERSTANDING.
--- NOTE | 2021-08-04 05:13 | NUR ---
PT UP TO BATHROOM, BRUSHED TEETH, WASHED FACE. BACK TO BED. CBI REMAINS CLAMPED, DE [place] TORRE EMPTIED. PT DENIED NEEDS AT THIS TIME. DID HAVE SOME BRIGHT RED DRAINAGE ONCE BACK TO BED, HOWEVER, DID NOT CONTINUE, URINE IS CLEAR PRIOR TO RN LEAVING ROOM.
--- NOTE | 2021-08-04 05:30 | NUR ---
pt BACK IN BED. IS AND OS COMPLETE. CBI REMAINS CLAMPED, CLEAR YELLOW URINE IN TUBING. COFFEE, WATER, CRACKERS PROVIDED. pt COMPLAINS OF INTERMITTENT PAIN AT CATHETER, OCCASIONAL FEELING BLADDER IS FULL. PRN PAIN MEDICATION ADMINISTERED FOR 3-5/10 REPORTED PAIN. CALL LIGHT WITHIN REACH. IVF INFUSING ORDERED.
--- NOTE | 2021-08-04 06:31 | NUR ---
pt RESTED WELL THIS SHIFT. COMPLAINS OF BURNING, FULLNESS INTERMITTENTLY IN BLADDER/PENIS. PRN PAIN MEDICATION FOR PAIN. CBI CLAMPED, CLEAR YELLOW URINE. BED REST THROUGHOUT SHIFT, UP TO RESTROOM X 1 FOR ATTEMPT OF BM, FLATUS ONLY. USING CALL LIGHT APPROPRIATELY. TOLERATING REGULAR DIET, NO NAUSEA.
--- NOTE | 2021-08-04 07:15 | NUR ---
THIS RN RECEIVED REPORT FROM SUKHDEEP CORBETT. PT AWAKE AND STATES THAT PAIN IS WELL CONTROLLED AT THIS TIME.
--- NOTE | 2021-08-04 09:00 | NUR ---
THIS RN IN PTS ROOM TO GIVE PT MORNING MEDS. PT STATES THAT HE IS DOING WELL. PAIN IS TOLERABLE 2-3/. CBI WAS TURNED OFF OVERNIGHT. THIS RN DISCONNETED AND CAPPED PTS DE LA TORRE. PT UNDERTANDING TEACHING AND IS JUST WAITING TO HEAR IF HIS PAIN MEDS ARE BEING FILLED.
--- NOTE | 2021-08-04 09:50 | NUR ---
It was pleasure to meet with Mateusz this morning and discuss his plan of care and patient exprience here in the hospital. Mateusz shared with me that he is very happy with his care and that he feels his care has been "very good." I asked him about his surgical experience, he said "it was good, it was very quick." When asked about his pre-op appointment he shared with me that he thought the information given pre-operitavely was "very informative" and he felt like he was prepared for his surgical experience based on the informtion give prior to the procedure. We discussed his post-operative instructions, and the need to make sure that he followed all of his post-op instructions. He shared with me that the doctor had explained the possible risks to him should he not follow the discharge instructions. Mateusz was also "happy" with the pain control he was receiving, and said "they are really staying on top of it." Mr. Pace expressed no further questions or concerns.
--- NOTE | 2021-08-04 10:00 | NUR ---
THIS RN BACK IN PTS ROOM TO RECHECK PTS ANTIBIOTICS INFUSION. PT STATES THAT HE IS DOING OKAY BUT PAIN IS INCREASING TO A 5/10. THIS RN PROVIDED PT WITH 1 PAIN PILL. PT STATES THAT HIS PERSCRIPTION SHOULD BE READY SOON.
--- NOTE | 2021-08-04 11:40 | NUR ---
Brief visit with pt as he is getting ready for dc and his is on the way to pick him up. He uses [facility] and already has followup appt with Dr. Campbell. He states she has already given him dc instructions. 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 He denies needs and denies questions. Dc to home today with .
--- NOTE | 2021-08-04 19:01 | OR ---
[facility] [address] [facility] [place] [address] Signed DATE OF OPERATION: 08/03/2021 SURGEON: Magno Suarez MD PREOPERATIVE DIAGNOSIS: Trilobar benign prostatic hyperplasia with lower urinary tract symptoms. POSTOPERATIVE DIAGNOSIS: Trilobar benign prostatic hyperplasia with lower urinary tract symptoms. NAME OF PROCEDURE: Transurethral resection of the prostate. ANESTHESIA: General. ESTIMATED BLOOD LOSS: 20 mL. COMPLICATIONS: None. DRAINS: A 22-Burmese three-way Sanabria catheter, connected to continuous bladder irrigation. SPECIMENS: Prostate chips sent to the lab for evaluation. INDICATIONS FOR PROCEDURE: Mr. Pace is a very pleasant 56-year-old gentleman who has been experiencing active prostatic enlargement with lower urinary tract symptoms for a good while now. He takes both Flomax and finasteride with only minimal improvement in his symptoms. He recently underwent diagnostic cystoscopy which revealed trilobar prostatic enlargement along with active evidence of bladder outlet obstruction. After discussion of the risks and benefits of surgery, the patient elected to undergo transurethral resection of the prostate. OPERATIVE FINDINGS: 1. The patient's urethral meatus was dilated from 20 to 30-Burmese today using Tama sounds without difficulty. Electronically Signed By: MAGNO SUAREZ MD 08/04/211900 PATIENT NAME: GREGORIA PACE OPERATIVE REPORT DATE OF : 63 REPORT #: [id number] PHYSICIAN: MAGNO SUAREZ MD PCP: PATRICIA DALY REPORT IS CONFIDENTIAL AND NOT TO BE RELEASED WITHOUT AUTHORIZATION [facility] [address] [place], [place] [address] Signed 2. Diagnostic ureteroscopy revealed moderate to severe lateral lobe hypertrophy, along with evidence of a medium sized median lobe. The middle lobe in particular was fairly hypertrophic and appeared to be actively obstructing his bladder outlet. All three lobes of the prostate were resected thoroughly today using bipolar cautery and the bipolar button without incident. 3. At the end of the procedure, a 22-Burmese three-way Sanabria catheter was inserted into the patient's bladder, and connected to continuous bladder irrigation. 4. Digital rectal examination was performed today which revealed an approximately 60 g prostate that is soft, smooth and symmetric with no evidence of focal nodularity. DESCRIPTION OF PROCEDURE: After informed consent was obtained, the patient was taken back to the operating room. He was transferred from the [facility] to the operating room table, where general anesthesia was induced. He was then placed in the dorsal lithotomy position and his genitalia were prepped and draped in a standard sterile fashion. The patient's urethral meatus was dilated from 20-Burmese to 30-Burmese using Dvaid sounds without difficulty. A 30-degree lens was then inserted into the patient's bladder using a visual obturator. A thorough diagnostic cystoscopy was then performed and I was able to easily identify the patient's bilateral ureteral orifices at that time. They did not appear to be near the patient's median lobe of the prostate. His bladder was otherwise unremarkable. I switched the visual obturator out for the resectoscope and focused my initial resection on the median lobe of the prostate. I resected a good deal of tissue off the median lobe and took down part of the bladder neck on the posterior side. I then turned my attention to both the left lobe of the prostate, followed by the right lobe of the prostate. All three lobes of the prostate were resected down to the level of the verumontanum using a bipolar loop initially, and then a bipolar button was used mostly for hemostasis. The anterior bladder neck was also resected using the bipolar loop. All the while, adequate hemostasis was achieved and maintained using bipolar electrocautery. A Lula syringe was then used to irrigate the bladder of all the prostate chips multiple times throughout the procedure. These chips were then placed in a specimen cup at the end of the procedure to be sent for pathological evaluation. Once I was satisfied with the resection, I removed the resectoscope, leaving the sheath behind. I inserted a 0.035 Sensor wire into the bladder via the sheath. The sheath was then removed fully intact, leaving the wire behind. Over the wire, I passed a 22-Burmese three-way Sanabria catheter into the patient's bladder and connected it to continuous bladder irrigation. The procedure was then terminated. The patient tolerated the procedure well without any complication. He will now be transferred to the postanesthesia care unit in stable condition. DISPOSITION: The patient will remain in Med/Surg overnight so that his continuous bladder irrigation can be slowly weaned off. He will also be given a regular diet and pain control as Electronically Signed By: MAGNO SUAREZ MD 08/04/21 4065 PATIENT NAME: GREGORIA PACE OPERATIVE REPORT DATE OF : 63 REPORT #: [id number] PHYSICIAN: MAGNO SUAREZ MD PCP: PATRICIA DALY REPORT IS CONFIDENTIAL AND NOT TO BE RELEASED WITHOUT AUTHORIZATION [address] [address] Signed needed. Once he is weaned off his CBI in the morning, he will be given one more dose of IV antibiotics. The plan is for him to be discharged to home tomorrow with a Sanabria catheter to gravity drainage. He will return to clinic this to undergo a voiding trial. MD CARLEY Garcia/CITLALI /[id number] Copies: ~ Electronically Signed By: MAGNO SUAREZ MD 08/04/211900 PATIENT NAME: GREGORIA PACE OPERATIVE REPORT DATE OF : 63 REPORT #: [id number] PHYSICIAN: MAGNO SUAREZ MD PCP: PATRICIA DALY REPORT IS CONFIDENTIAL AND NOT TO BE RELEASED WITHOUT AUTHORIZATION
--- NOTE | 2021-08-05 10:06 | PATH ---
[facility] [address] [place], [place] [address] Signed SPECIMEN(S): A PROSTATE CHIPS SPECIMEN SOURCE: A. PROSTATE CHIPS CLINICAL HISTORY: BPH, dysuria, OAB. Transurethral resection of prostate. FINAL PATHOLOGIC DIAGNOSIS: Prostate chips: - Fragments of benign prostatic tissue demonstrating glandular and stromal hyperplasia, consistent with features seen in benign prostatic hyperplasia. - Areas of chronic inflammation are identified. TWK:valerianow:C2NR MICROSCOPIC EXAMINATION: Histologic sections of all submitted blocks are examined by light microscopy. These findings, together with the gross examination, support the pathologic diagnosis. GROSS DESCRIPTION: The specimen, labeled "RF, A," and designated on the requisition "prostate chips," is received in formalin and consists of roy-pink, rubbery tissue fragments with clot material measuring 8.9 x 7.4 x 1.4 cm in aggregate and weighing 13.9 grams. Teacher'S Assistant sections are submitted in cassettes (A1-A8). AT (under the direct supervision of a pathologist) The Gross Description was prepared using a voice recognition system. The report was reviewed for accuracy; however, sound-alike word errors, addition and/or deletions may occur. If there is any question about this report, please contact Client Services. PERFORMING LABORATORY: The technical component was performed by [facility], [address] [place] [id number] (Towboat Operator: Romi Ballard MD; CLIA# [id number]). The professional interpretation was performed by [facility], [address] [place] [address]. Diagnostician: Eddie Franklin MD Pathologist PATIENT NAME: GREGORIA CHAMPION PATHOLOGY DATE OF : 63 REPORT #: [id number] PHYSICIAN: MEE PATHOLOGY PCP: PATRICIA DALY REPORT IS CONFIDENTIAL AND NOT TO BE RELEASED WITHOUT AUTHORIZATION [address] [place], [place] [address] Signed Electronically Signed 08/05/2021 Copies: ~ PATIENT NAME: GREGORIA CHAMPION PATHOLOGY DATE OF : 63 REPORT #: [id number] PHYSICIAN: MEE PATHOLOGY PCP: PATRICIA DALY REPORT IS CONFIDENTIAL AND NOT TO BE RELEASED WITHOUT AUTHORIZATION
== END 2021-08-04 12:32 | disposition home or self-care (01) ==
LOC: MS 05:50 → DS 05:50
PROVIDERS: ATTEND Urology
PROC: 0VT08ZZ Resection of Prostate, Via Natural or Artificial Opening Endoscopic (ICD-10-PCS; principal; 2021-08-03 06:45)
DX: N40.1 Benign prostatic hyperplasia with lower urinary tract symptoms (principal); N39.41 Urge incontinence; R39.12 Poor urinary stream; R35.0 Frequency of micturition; R35.1 Nocturia; N32.81 Overactive bladder; I10 Essential (primary) hypertension; E78.5 Hyperlipidemia, unspecified; G47.33 Obstructive sleep apnea (adult) (pediatric); E66.01 Morbid (severe) obesity due to excess calories; M48.061 Spinal stenosis, lumbar region without neurogenic claudication; K21.9 Gastro-esophageal reflux disease without esophagitis; G89.29 Other chronic pain; Z79.899 Other long term (current) drug therapy; Z79.890 Hormone replacement therapy; Z79.1 Long term (current) use of non-steroidal anti-inflammatories (NSAID); Z91.09 Other allergy status, other than to drugs and biological substances; Z87.891 Personal history of nicotine dependence; Z68.34 Body mass index [BMI] 34.0-34.9, adult
CPT/HCPCS: 00914; C1769; J0690; J0696; J1100; J1170; J1885; J2250; J2405; J2704; J2765; J3010; J7121

== ENCOUNTER 2022-03-27 10:09 | Emergency (ER) | payer BC, OTHER ==
[~2022-03-27] VITALS: Ht 190.5 cm; Wt 126.0 kg
[~2022-03-27 10:09] MED LIST changes: +LEVOFLOXACIN500 MG PO; +MULTI-VITAMIN1 EACH PO; +OXYCODONE HCL5 MG PO
--- OUTSIDE RECORDS SUMMARY | 2022-03-27 10:10 | XMS ---
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 Gavin has no Care Guidelines for this patient. Keny VISIT COUNT (12 MO.) 1 [facility] 2 EBENEZER Cerda TOTAL 3 NOTE: Visits indicate total known visits. ED/[facility] VISIT TRACKING (12 MO.) 03/27/2022 10:09 EBENEZER Taylor [place] TYPE: Emergency COMPLAINT: - HEAD INJURY 04/05/2021 13:[address] 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
== END 2022-03-27 13:46 | disposition home or self-care (01) ==
LOC: ED 10:09
DX: S09.90XA Unspecified injury of head, initial encounter (principal); E78.00 Pure hypercholesterolemia, unspecified; K21.9 Gastro-esophageal reflux disease without esophagitis; I10 Essential (primary) hypertension; Z88.8 Allergy status to other drugs, medicaments and biological substances; Z91.048 Other nonmedicinal substance allergy status; Z79.899 Other long term (current) drug therapy; W01.198A Fall on same level from slipping, tripping and stumbling with subsequent striking against other object, initial encounter
CPT/HCPCS: 70450; 99283-25

== ENCOUNTER 2022-03-30 11:47 | Emergency (ER) | payer BC, OTHER ==
[~2022-03-30] VITALS: Ht 190.5 cm; Wt 126.0 kg
--- OUTSIDE RECORDS SUMMARY | 2022-03-30 11:50 | XMS ---
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 - [facility] - 2 Visits in 30 Days CARE PROVIDERS There are no care providers on record at this time. Gavin has no Care Guidelines for this patient. Keny [facility] COUNT ([address] [facility] 4 NOTE: Visits indicate total known visits. ED/[facility] VISIT TRACKING (12 MO.) [facility] [place] [facility] COMPLAINT: - EYE PRESSURE, HEAD PAIN, NAUSEA 03/27/2022 10:09 EBENEZER Taylor [place] TYPE: Emergency COMPLAINT: - HEAD INJURY DIAGNOSES: - Gastro-esophageal reflux disease without esophagitis - Unspecified injury of head, initial encounter - Other nonmedicinal substance allergy status - Allergy status to other drugs, medicaments and biological substances - Fall on same level from slipping, tripping and stumbling with subsequent striking against other object, initial encounter - Essential (primary) hypertension - Pure hypercholesterolemia, unspecified - Other mcc (current) drug therapy 04/05/2021 13:56 [facility] Blu ELLIS TYPE: Emergency DIAGNOSES: - Otalgia, bilateral - Essential (primary) hypertension - Hypertension - elevated bp - Dizziness and giddiness 03/31/2021 16:32 EBENEZER [place] TYPE: Emergency COMPLAINT: - HEADACHE, EAR, EYE, BODY PAIN, FATIGUE DIAGNOSES: - Gastro-esophageal reflux disease without esophagitis - Other intermediate teacher (current) drug therapy - Other nonmedicinal substance allergy status - Essential (primary) hypertension - Allergy status to other drugs, medicaments and biological substances - Pure hypercholesterolemia, unspecified - Weakness - Viral infection, unspecified INPATIENT VISIT TRACKING (12 MO.) No inpatient visits to display in this time frame [id number]
[2022-03-30] MEDS ORDERED: ONDANSETRON ODT8 MG PO (12:31)
== END 2022-03-30 12:38 | disposition home or self-care (01) ==
LOC: ED 11:47
DX: S06.0X9A Concussion with loss of consciousness of unspecified duration, initial encounter (principal); W01.10XA Fall on same level from slipping, tripping and stumbling with subsequent striking against unspecified object, initial encounter; E78.00 Pure hypercholesterolemia, unspecified; K21.9 Gastro-esophageal reflux disease without esophagitis; I10 Essential (primary) hypertension; Z88.8 Allergy status to other drugs, medicaments and biological substances; Z79.899 Other long term (current) drug therapy
CPT/HCPCS: 99283

== ENCOUNTER 2024-05-10 17:17 | Emergency (ER) | payer BC, OTHER ==
[~2024-05-10] VITALS: Ht 190.5 cm; Wt 105.6 kg
[~2024-05-10 17:17] MED LIST changes: +D3-200050 MCG PO; +GENTAK5 ML OPTH; +HYDROCODON-ACE1 EA11 PO; +METFORMIN HCL500 M1 PO; +ONDANSETRON ODT4 MG PO; +ONDANSETRON ODT8 MG PO; +SIMVASTATIN20 MG PO; +TESTOSTERO200 MG/1 M IM; +TYLOPHEN500 MG PO
[2024-05-10] MEDS ORDERED: HYDROCODON-ACE1 EA11 PO (17:35)
[2024-05-10] MEDS ORDERED: AMLODIPINE BESYL5 MG PO (17:35)
[2024-05-10 19:41] LABS: BASOPHILS 0.6 % (0-2); EOSINOPHILS 0.1 % (0-6); HEMATOCRIT 46.6 % (35.0-50.0); HEMOGLOBIN 15.2 g/dL (12.0-18.0); LYMPHOCYTES 4.6 % (24-44); MCH 26.7 (27-36); MCHC 32.6 g/dl (30-36); MCV 81.8 fl (81-99); MONOCYTES 7.2 % (0-12); NEUTROPHILS 87.5 % (39-80); PLATELET COUNT 213 K/uL (140-440); RDW 15.7 (10.5-15.0)
[2024-05-10 19:51] LABS: INR 1.04 (0.80-1.30); PROTIME 12.9 Sec (11.2-14.2)
[2024-05-10 19:55] LABS: ALBUMIN 3.7 g/dL (3.4-5.0); ALBUMIN/GLOBULIN RATIO 1.19 (1.1-2.4); ANION GAP 14.8 (7-21); BILIRUBIN, TOTAL 0.3 ng/dL (0.2-1.0); CREATININE, SERUM 1.4 mg/dL (0.70-1.30); POTASSIUM 4.8 mmol/L (3.5-5.1); PROTEIN, TOTAL 6.8 g/dL (6.4-8.2)
[2024-05-10 19:57] VITALS: BP 128/83
== END 2024-05-10 19:57 | disposition home or self-care (01) ==
LOC: ED 17:17
PROVIDERS: Internal Medicine
DX: M96.830 Postprocedural hemorrhage of a musculoskeletal structure following a musculoskeletal system procedure (principal); E78.00 Pure hypercholesterolemia, unspecified; K21.9 Gastro-esophageal reflux disease without esophagitis; I10 Essential (primary) hypertension; Z79.84 Long term (current) use of oral hypoglycemic drugs; Z79.51 Long term (current) use of inhaled steroids; Z88.8 Allergy status to other drugs, medicaments and biological substances; Z91.048 Other nonmedicinal substance allergy status
CPT/HCPCS: 36415; 80053; 85025; 85610; 85730; 99283

== ENCOUNTER 2024-05-14 09:19 | Emergency (ER) | payer BC, OTHER ==
[~2024-05-14] VITALS: Ht 190.5 cm; Wt 127.0 kg
[~2024-05-14 09:19] MED LIST changes: +AMLODIPINE BESYL5 MG PO
--- OUTSIDE RECORDS SUMMARY | 2024-05-14 09:22 | XMS ---
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 Gavin has no Care Guidelines for this patient. Keny V[facility]IT COUNT (12 MO.) 3 [facility] NOTE: Visits indicate total known visits. ED/C VISIT TRACKING (12 MO.) 05/14/2024 09:[address] [facility] [address] Clint [place] TYPE: Emergency COMPLAINT: - WOUND CHECK 05/10/2024 17:17 EBENEZER Taylor [place] TYPE: Emergency COMPLAINT: - POST OP PROBLEM DIAGNOSES: - Allergy status to other drugs, medicaments and biological substances - Essential (primary) hypertension - Gastro-esophageal reflux disease without esophagitis - intermediate school teacher (current) use of inhaled steroids - MCFP (current) use of oral hypoglycemic drugs - Other nonmedicinal substance allergy status - Postprocedural hemorrhage of a musculoskeletal structure following a musculoskeletal system procedure - Pure hypercholesterolemia, unspecified 12/19/2023 08:04 EBENEZER Taylor [place] TYPE: Emergency COMPLAINT: - CHEST PAIN DIAGNOSES: - Acute kidney failure, unspecified - Allergy status to other drugs, medicaments and biological substances - Essential (primary) hypertension - Gastro-esophageal reflux disease without esophagitis - Hyperglycemia, unspecified - intermediate school teacher (current) 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
[2024-05-14] MEDS ORDERED: LISINOPRIL40 MG PO (09:43)
[2024-05-14] MEDS ORDERED: METFORMIN HCL750 MG PO (09:45)
[2024-05-14 10:55] VITALS: BP 137/85
== END 2024-05-14 10:56 | disposition home or self-care (01) ==
LOC: ED 09:19
DX: L76.82 Other postprocedural complications of skin and subcutaneous tissue (principal); S80.821A Blister (nonthermal), right lower leg, initial encounter; M79.89 Other specified soft tissue disorders; I10 Essential (primary) hypertension; K21.9 Gastro-esophageal reflux disease without esophagitis; Y83.8 Other surgical procedures as the cause of abnormal reaction of the patient, or of later complication, without mention of misadventure at the time of the procedure; Z88.8 Allergy status to other drugs, medicaments and biological substances; Z91.09 Other allergy status, other than to drugs and biological substances; Z79.899 Other long term (current) drug therapy; Z79.84 Long term (current) use of oral hypoglycemic drugs; Z79.890 Hormone replacement therapy; Z96.653 Presence of artificial knee joint, bilateral
CPT/HCPCS: 93971; 99283-25

== ENCOUNTER 2025-01-28 07:05 | Day surgery (SDC) | payer BC, OTHER ==
[2025-01-22 11:46] VITALS: BP 116/78
[2025-01-28] VITALS (7 sets, daily range): BP systolic 115–158; BP diastolic 64–81
[~2025-01-28] VITALS: Ht 190.5 cm; Wt 120.5 kg
[~2025-01-28 07:05] MED LIST changes: +ATORVASTATIN CA40 MG PO; +CEFAZOLIN SODIUM 3 GM/30 ML SYR IV SCH; +DRY EYE RELIEF15 ML; +GENTAMICIN SULFA5 ML OU; +IBLOOD GLUCOSE TEST STRIP 1 EA TEST VI PRN; +IBU800 MG PO; +LACTATED RINGER'S 1,000 ML IV SCH; +LIDOCAINE HCL 1% 5 ML SDV INJ ONE; +LISINOPRIL40 MG PO; +METFORMIN HCL750 MG PO; +METOPROLOL SUC100 MG PO; +MULTI VITAMIN1 EACH PO; +PROVIGIL200 MG PO; +TYLENOL EXTRA500 MG PO
[2025-01-28] MEDS ORDERED: dexmedeTOMIDine HCl 200 MCG/2 ML VIAL ONE (07:35)
[2025-01-28] MEDS ORDERED: propofoL 200 MG/20 ML VIAL ONE (07:35)
[2025-01-28] MEDS ORDERED: LIDOCAINE HCL 2% 5 ML SDV ONE (07:35)
[2025-01-28] MEDS ORDERED: ROCURONIUM BROMIDE 50 MG/5 ML SYR ONE ×2 (07:35→08:38)
[2025-01-28] MEDS ORDERED: KETAMINE in NS 50 MG/5 ML SYR ONE (07:36)
[2025-01-28 07:38] LABS: ANION GAP 11.5 (7-21); BUN/CREATININE RATIO 24.6 (6.0-28.6); CALCIUM 9.1 mg/dL (8.5-10.1); CREATININE, SERUM 1.26 mg/dL (0.70-1.30); POTASSIUM 4.5 mmol/L (3.5-5.1)
[2025-01-28] MEDS ORDERED: ondansetron HCL 4 MG TAB PO PRN (09:00)
[2025-01-28] MEDS ORDERED: AMLODIPINE BESYLATE 5 MG TAB PO SCH (09:00)
[2025-01-28] MEDS ORDERED: HYDROmorphone HCL 1 MG/ML SYR IV PRN ×2 (09:00→11:00)
[2025-01-28] MEDS ORDERED: LACTATED RINGER'S 1,000 ML IV SCH (09:00)
[2025-01-28] MEDS ORDERED: ACETAMINOPHEN 500 MG TAB PO PRN (09:00)
[2025-01-28] MEDS ORDERED: DEXTROSE 50% 50 ML SYR IV PRN ×2 (09:00)
[2025-01-28] MEDS ORDERED: GLUCAGON,HUMAN RECOMBINANT 1 MG/ML VIAL SUB-Q PRN (09:00)
[2025-01-28] MEDS ORDERED: OXYCODONE/APAP 5/325 TAB PO PRN (09:00)
[2025-01-28] MEDS ORDERED: ondansetron HCL 4 MG/2 ML VIAL IV PRN ×2 (09:00→11:00)
[2025-01-28] MEDS ORDERED: DEXTROSE 5% 1,000 ML IV PRN (09:00)
[2025-01-28] MEDS ORDERED: IBLOOD GLUCOSE TEST STRIP 1 EA TEST XX PRN (09:00)
[2025-01-28] MEDS ORDERED: lisinopriL 20 MG TAB PO SCH (09:00)
[2025-01-28] MEDS ORDERED: diphenhydrAMINE HCL 25 MG CAP PO PRN (09:00)
[2025-01-28] MEDS ORDERED: KETOROLAC TROMETHAMINE 30 MG/ML VIAL ONE (09:06)
[2025-01-28] MEDS ORDERED: DEXAMETHASONE SOD PHOS 4 MG/ML VIAL ONE (09:08)
[2025-01-28] MEDS ORDERED: ACETAMINOPHEN 1,000 MG/100 ML VIAL ONE (09:09)
[2025-01-28] MEDS ORDERED: MAGNESIUM SULFATE 1 GM/2 ML VIAL ONE ×3 (09:11)
[2025-01-28] MEDS ORDERED: fentaNYL citrate 100 MCG/2 ML VIAL ONE (09:32)
[2025-01-28] MEDS ORDERED: SUGAMMADEX SODIUM 200 MG/2 ML ML ONE (10:08)
[2025-01-28] MEDS ORDERED: ondansetron HCL 4 MG/2 ML VIAL ONE (10:09)
[2025-01-28] MEDS ORDERED: TRANEXAMIC ACID 1,000 MG/10 ML AMP ONE (10:09)
[2025-01-28] MEDS ORDERED: ePHEDrine sulfate 50 MG/ML AMP ONE (10:11)
[2025-01-28] MEDS ORDERED: Insulin Regular, Human 100 UNIT/ML ML SUB-Q PRN (10:45)
[2025-01-28] MEDS ORDERED: fentaNYL citrate 50 MCG/ML SDV ONE (10:50)
[2025-01-28] MEDS ORDERED: fentaNYL citrate 50 MCG/ML SDV IV PRN (11:00)
[2025-01-28] MEDS ORDERED: droPERidol 5 MG/2 ML VIAL IV PRN (11:00)
[2025-01-28] MEDS ORDERED: diphenhydrAMINE HCL 50 MG/ML VIAL IV PRN (11:00)
[2025-01-28] MEDS ORDERED: NALOXONE HCL 0.4 MG SYR IV PRN (11:00)
[2025-01-28] MEDS ORDERED: MIDAZOLAM HCL 2 MG/2 ML VIAL IV PRN (11:00)
--- NOTE | 2025-01-28 11:49 | NUR ---
01/28/25 1149 Samia John 1023 PT ARRIVED IN PACU NON RESPONSIVE TO NOXIOUS STIMULI WITH OPA IN PLACE. CHIN LIFT HELD BY RN. 1030 BLOOD SUGAR 185. NEW ORDERS RECEIVED. 1038 PT REACTIVE. OPA REMOVED. 1039 REGULAR INSULIN 5 UNITS GIVEN SUB Q IN R ARM. 1045 C/O BLADDER DISCOMFORT. CBI RUNNING WITH LIGHT PINK COLORED IN DRAIANGE BAG. 1051 FENTANYL 50MCG GIVEN IVP FOR BLADDER PAIN. 1105 NO CHANGE IN DISCOMFORT TO BLADDER. 1115 DILAUDID 0.5MG GIVEN IV. 1116 LAYING SUPINE AND PALPATED STOMACH AND BLADDER WITH NO DISTENTION NOTED. 1118 BLOOD SUGAR 159. 1120 SITTING HIGH ATKINSON FOR COMFORT. DILAUDID 0.5MG GIVEN IV. PT TALKING TO STAFF AND C/O BLADDER DISCOMFORT. UNABLE TO RATE PAIN. 1138 TO ROOM 109. BED PLUGGED IN AND REPORT GIVEN TO RN.
[2025-01-28] MEDS ORDERED: Insulin Regular, Human 100 UNIT/ML ML SUB-Q SCH (12:00)
[2025-01-28] MEDS ORDERED: IBLOOD GLUCOSE TEST STRIP 1 EA TEST XX SCH (12:00)
--- NOTE | 2025-01-28 12:02 | NUR ---
PATIENT TO MED SURG AT 1130 VIA BED. PATIENT DENIES PAIN, VITALS ARE WNL. CBI IS VERY SLOW DRIP, PER DR. SUAREZ, DUE TO PATIENT HAVING THIS THIN BLADDER WALL. URINE IS CLEAR YELLOW. PATIENT IS SITTING UP IN BED, SIPPING ICE WATER. LUNCH IS ORDERED. BG IS 149.
--- NOTE | 2025-01-28 13:26 | NUR ---
PATIENT IS SITTING UP IN BED, VISITING WITH FAMILY. POST OP VSS. CBI IS OFF. PATIENT ENDORSES CATHETER ASSOCIATED PRESSURE, DENIES PAIN.
--- NOTE | 2025-01-28 13:30 | NUR ---
PATIENT IS RESTING IN BED, DENIES NEEDS AND IS AWAITING HIS RIDE HOME.
--- NOTE | 2025-01-28 13:43 | NUR ---
INTO SEE PATIENT. PERSONAL HEALTH INFORMATION REVIEWED. PATIENT LIVES IN A HOUSE WITH . 3 STEPS TO GET INTO. PATIENT DENIES ANY DIFFCULTY DOING THEM. DOES NOT USE CANE, WALKER OR WHEELCHAIR BUT HAS THEM. NO OXYGEN. DOES WEAR A BIPAP THROUGH [employer]. DENIES DIFFCULTY PAYING UTILITIES OR OBTAINING FOOD. WILL HAVE DRIVE HIM AT TIME OF DISCHARGE. NO FUTHER CM NEEDS.
--- NOTE | 2025-01-28 13:51 | NUR ---
UR CLINICAL REVIEW: [facility] REVIEW MEETS EXTENDED STAY FOR TURP WITH 24 CBI [facility] EXTENDED STAY 01/28/25 @ 0854 ORDER MATCHES REG NO AUTH REQ FOR EXTENDED STAY RECOVERY PER [facility] GUIDELINES DISCHARGE TO HOME IN AM IF 24 HR CBI IS COMPLETE
[2025-01-28] MEDS ORDERED: FAMOTIDINE 20 MG TAB PO ONE (14:00)
--- NOTE | 2025-01-28 14:44 | NUR ---
LAST SET OF POST OP VITALS COMPLETE. CBI IS OFF. URINE OUTPUT IS 450.
--- NOTE | 2025-01-28 15:06 | NUR ---
VISITED DURING SPIRITUAL CARE ROUNDS. PT SUPPORTED BY IN ROOM. BOTH IN OVERALL GOOD SPIRITS. NO IMMEDIATE NEEDS. PT DECLINED OFFER OF VISIT FROM INVESTOR RELATIONS ANALYST. BIOSTATISTICS PROFESSOR PROVIDED SUPPORTIVE PRESENCE, HOSPITALITY, PRAYER, FACILITATED INTERACTION WITH THERAPY ANIMAL. PT AND EXPRESSED GRATITUDE, FAMILY CONNECTION SOURCE OF STRENGTH.
[2025-01-28] MEDS ORDERED: SEVOFLURANE 250 ML BTL INH ONE (15:21)
[2025-01-28] MEDS ORDERED: SILDENAFIL CITR50 MG PO (15:48)
[2025-01-28] MEDS ORDERED: VIAGRA50 MG PO (16:06)
[2025-01-28] MEDS ORDERED: DEPO-TESTO200 MG/1 M IM (16:07)
[2025-01-28] MEDS ORDERED: IBU800 MG PO (16:07)
[2025-01-28] MEDS ORDERED: METFORMIN HCL750 MG PO (16:08)
--- NOTE | 2025-01-28 16:11 | NUR ---
PATIENT IS RESTING IN BED, DENIES NEEDS. CBI HAS BEEN OFF FOR ONE HOUR, URINE IS CLEAR YELLOW.
[2025-01-28] MEDS ORDERED: FAMOTIDINE 20 MG TAB ONE ×2 (16:13→16:16)
--- NOTE | 2025-01-28 16:42 | NUR ---
medications reconciled using pharmacy records and patient interview
--- NOTE | 2025-01-28 18:02 | NUR ---
PATIENT SITTING UP IN BED WATCHING TV AT THIS TIME, IN ROOM. VITALS AND I&O'S DONE AND CHARTED. CALL LIGHT IN REACH. NO FURTHER NEEDS AT THIS TIME.
--- NOTE | 2025-01-28 18:49 | NUR ---
PATIENT REPORTS 11/29 AFTER PERCOCET.
--- NOTE | 2025-01-28 19:27 | NUR ---
RECEIVED REPORT. PT ALERT, WATCHING TV WITH SUPPORTIVE AND DAUGHTER AT BEDSIDE. PT REPORTS PAIN IS NOT IMPROVED AFTER PREVIOUS PAIN MEDICATION. RATES PAIN 4/10 WITH SPIKES UP TO 7/10. CALL LIGHT IN REACH
--- NOTE | 2025-01-28 20:04 | NUR ---
VITALS, ASSESSMENT. GIVEN IV DILAUDID 0.5MG AND ICE PACK FOR PAIN UNIMPROVED FROM PREVIOUS PRNS. PT DENIES NAUSEA, OTHER SX. GIVEN SALTINE CRACKERS PER REQUEST. CALL LIGHT IN REACH
--- NOTE | 2025-01-28 21:44 | NUR ---
SCD PUMP ALARMING, PLUGGED INTO POWER AT THIS TIME. pt SITTING UP IN BED LOOKING AT CELL PHONE. DENIES NEEDS. URINE CLEAR IN DE LA TORRE TUBING. CALL LIGHT IN REACH.
--- NOTE | 2025-01-28 22:26 | NUR ---
EVENING BLOOD GLUCOSE, GIVEN 1 UNIT INSULIN REGULAR. PAIN IMPROVED FROM EARLIER. NO OTHER NEEDS, CALL LIGHT INREACH
--- NOTE | 2025-01-29 00:10 | NUR ---
EMPTIED CATHETER BAG. PT RESTING WITH EYES CLSOED, RISE ADN FALL OF CHEST NOTED. CALL LIGHT IN REACH
[2025-01-29 01:58] VITALS: BP 120/65
--- NOTE | 2025-01-29 02:07 | NUR ---
VITALS, 2ND ASSESSMENT, I&OS. PT C/O INCREASING PAIN, GIVEN PRN PERCOCET. DECLINES OTHER NEEDS, CALL LIGHT IN REACH
--- NOTE | 2025-01-29 04:36 | NUR ---
PT ALERT IN BED. REFILLED ICE WATER. NO OTHER NEEDS, CALL LIGHT IN REACH
[2025-01-29 05:21] VITALS: BP 122/69
[2025-01-29] MEDS ORDERED: CEFTRIAXONE SODIUM 1 GM in SODIUM CHLORIDE 0.9% 100 ML IV SCH (07:00)
--- NOTE | 2025-01-29 07:34 | NUR ---
MORNING REPORT RECIEVED FROM CHELLE RIVERA. PT SITTING UP IN BED AWAKE AND ALERT AT THIS TIME. PT HAS A DULL PAIN IN HIS LOWER BLADDER AREA, BUT PT THINKS IT WAS BE THE CATH. PT HAS BEEN VOIDING WNL AMOUNT OF URINE, URINE CLEAR AND YELLOW WITH SLIGHT PINK TINGE, CBI CLAMPED SINCE LAST NIGHT AT 1800. PT HAS NO CONCERNS OR NEED FOR PAIN MEDICATION AT THIS TIME CALL LIGHT IN REACH.
[2025-01-29] MEDS ORDERED: OXYCODONE HCL5 MG PO (07:35)
[2025-01-29] MEDS ORDERED: LEVOFLOXACIN500 MG PO (07:36)
--- NOTE | 2025-01-29 09:21 | NUR ---
PLAN TO DC HOME WITH TODAY, NO CM NEEDS.
[2025-01-29 09:30] VITALS: BP 120/70
--- NOTE | 2025-01-29 10:55 | NUR ---
PT DC'D HOME, PT WAS PICKED UP BY THEIR SPOUSE, PT WAS EDUCATED ON CATH CARE AND ALL QUESTIONS ANSWERED ABOUT FOLLOW UP APPOINTMENTS. PT HAS N OCURRENT CONCERNS AND INSTRUCTED TO CALL MD NERI OFFICE IF ANY QUESTIONS OCCUR.
--- NOTE | 2025-01-29 11:04 | NUR ---
PT TRANSPORTED VIA WHEELCHAIR VAN, PT REPORT CALLED TO [facility], REPORT GIVEN TO VENKAT. ALL QUESTIONS ANSWERED.
[2025-01-29] MEDS ORDERED: OXYBUTYNIN CHLOR5 MG PO (17:42)
--- NOTE | 2025-01-30 13:18 | PATH ---
[facility] [address], [place] [address] Signed SPECIMEN(S): A BLADDER BIOPSIES SPECIMEN(S): B PROSTATE CHIPS SPECIMEN SOURCE: A. BLADDER BIOPSIES B. PROSTATE CHIPS CLINICAL HISTORY: Gross hematuria, bladder tumor, BPH with LUTS FINAL PATHOLOGIC DIAGNOSIS: A. Bladder, biopsies - Inflamed urothelial mucosa, negative for for malignancy. B. Prostate chips, transurethral resection - Nodular hyperplasia (BPH). AMB MICROSCOPIC EXAMINATION: Histologic sections of all submitted blocks are examined by light microscopy. These findings, together with the gross examination, support the pathologic diagnosis. GROSS DESCRIPTION: A. The specimen, labeled and designated "Katelynn R., papillary masses bladder biopsies per requisition," is received in formalin and consists of a single roy tissue fragment measuring 0.5 cm in greatest dimension. The specimen is entirely submitted in cassette A1. B. The specimen, labeled and designated "Katelynn, R., prostate chips per requisition," is received in formalin and consists of a 9 g, 5 x 3.8 x 1.7 cm aggregate of roy-pink rubbery tissue fragments. All fragments are homogeneous in color, shape, and texture. The specimen is submitted entirely in cassette B1 through B4. AA (under the direct supervision of a pathologist) The Gross Description was prepared using a voice recognition system. The report was reviewed for accuracy; however, sound-alike word errors, addition and/or deletions may occur. If there is any question about this report, please contact Client Services. ADDITIONAL NOTES: Immunohistochemical and/or in situ hybridization studies if performed in this case included appropriate positive controls that reacted as expected. This PATIENT NAME: GREGORIA CHAMPION PATHOLOGY DATE OF : 63 REPORT #: [id number] PHYSICIAN: MEE HAM PCP: PATRICIA DALY PAC REPORT IS CONFIDENTIAL AND NOT TO BE RELEASED WITHOUT AUTHORIZATION [facility] [address], [place] [address] Signed test was developed and its performance characteristics determined by [employer]. It has not been cleared or approved by the U.S. Food and Drug Administration. The FDA has determined that such clearance or approval is not necessary. This test is used for clinical purposes. It should not be regarded as investigational or for research. [employer] is certified under the Clinical Laboratory Improvement Amendments of 1988 (CLIA) as qualified to perform high complexity clinical laboratory testing. PERFORMING LABORATORY: Technical component was performed by [employer] [facility], [address] [place] [address] (CLIA# [id number]). Professional interpretation was performed by [facility] - [address] [id number] Diagnostician: Romi Ballard MD Pathologist Electronically Signed 01/30/2025 Copies: ~ PATIENT NAME: GREGORIA CHAMPION PATHOLOGY DATE OF : 63 REPORT #: [id number] PHYSICIAN: MEE PATHOLOGY PCP: PATRICIA DALY PAC REPORT IS CONFIDENTIAL AND NOT TO BE RELEASED WITHOUT AUTHORIZATION
== END 2025-01-29 10:55 | disposition home or self-care (01) ==
LOC: DS 07:05 → MS 11:25 → DS 01-29 10:55
PROVIDERS: Nurse Anesthetist, Certified Registered; ATTEND Urology
PROC: 0VB08ZZ Excision of Prostate, Via Natural or Artificial Opening Endoscopic (ICD-10-PCS; principal; 2025-01-28 08:50)
PROC: 0TBC8ZX Excision of Bladder Neck, Via Natural or Artificial Opening Endoscopic, Diagnostic (ICD-10-PCS; 2025-01-28 08:50)
DX: N40.1 Benign prostatic hyperplasia with lower urinary tract symptoms (principal); N32.9 Bladder disorder, unspecified; I10 Essential (primary) hypertension; K21.9 Gastro-esophageal reflux disease without esophagitis; E78.5 Hyperlipidemia, unspecified; E03.9 Hypothyroidism, unspecified; G47.33 Obstructive sleep apnea (adult) (pediatric); E11.9 Type 2 diabetes mellitus without complications; Z79.84 Long term (current) use of oral hypoglycemic drugs; Z79.899 Other long term (current) drug therapy; Z88.8 Allergy status to other drugs, medicaments and biological substances; Z91.09 Other allergy status, other than to drugs and biological substances
CPT/HCPCS: 00914; 36415; 51700; 80048; 96360; 96361; 96365; 96372; 96375; A9270; C1713; C1769; J0131; J0690; J0696; J1100; J1171; J1815; J1885; J2003; J2405; J2704; J3010; J3475; J3490; J7121

== ENCOUNTER 2025-01-29 14:55 | Emergency (ER) | payer BC, OTHER ==
[~2025-01-29] VITALS: Ht 266.7 cm; Wt 120.0 kg
[~2025-01-29 14:55] MED LIST changes: -CEFAZOLIN SODIUM 3 GM/30 ML SYR IV SCH; +DEPO-TESTO200 MG/1 M IM; -IBLOOD GLUCOSE TEST STRIP 1 EA TEST VI PRN; -LACTATED RINGER'S 1,000 ML IV SCH; -LIDOCAINE HCL 1% 5 ML SDV INJ ONE; +SILDENAFIL CITR50 MG PO; +VIAGRA50 MG PO
--- OUTSIDE RECORDS SUMMARY | 2025-01-29 15:02 | XMS ---
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 Gavin has no Care Guidelines for this patient. Keny VISIT COUNT (12 MO.) 4 [facility] [facility]. TOTAL 4 NOTE: Visits indicate total known visits. ED/C VISIT TRACKING (12 MO.) 01/29/2025 14:56 [facility] Clint Ceballos [place] TYPE: Emergency COMPLAINT: - CATH CHECK 01/23/2025 09:34 EBENEZER Taylor [place] TYPE: Emergency COMPLAINT: - ABNORMAL LAB RESULTS DIAGNOSES: - Abnormal finding of blood chemistry, unspecified - Allergy status to other drugs, medicaments and biological substances - Essential (primary) hypertension - Gastro-esophageal reflux disease without esophagitis - Hypothyroidism, unspecified - intermediate accountant (current) use of inhaled steroids - intermediate accountant (current) use of oral hypoglycemic drugs - Other chest pain - Other ad terminal makeup operator (current) drug therapy - Pure hypercholesterolemia, unspecified - Type 2 diabetes mellitus without complications 05/14/2024 09:19 EBENEZER Taylor [place] TYPE: Emergency COMPLAINT: - WOUND CHECK DIAGNOSES: - Allergy status to other drugs, medicaments and biological substances - Blister (nonthermal), right lower leg, initial encounter - Essential (primary) hypertension - Gastro-esophageal reflux disease without esophagitis - Hormone replacement therapy - intermediate accountant (current) use of oral hypoglycemic drugs - Other allergy status, other than to drugs and biological substances - Other fci (current) drug therapy - Other postprocedural complications of skin and subcutaneous tissue - Other specified soft tissue disorders - Other surgical procedures as the cause of abnormal reaction of the patient, or of later complication, without mention of misadventure at the time of the procedure - Presence of artificial knee joint, bilateral 05/10/2024 17:[address] [facility] [address] [place] TYPE: Emergency COMPLAINT: - POST OP PROBLEM DIAGNOSES: - Allergy status to other drugs, medicaments and biological substances - Essential (primary) hypertension - Gastro-esophageal reflux disease without esophagitis - [facility] (current) use of inhaled steroids - intermediate accountant (current) use of oral hypoglycemic drugs - Other nonmedicinal substance allergy status - Postprocedural hemorrhage of a musculoskeletal structure following a musculoskeletal system procedure - Pure hypercholesterolemia, unspecified INPATIENT VISIT TRACKING (12 MO.) No inpatient visits to display in this time frame [id number]
[2025-01-29] MEDS ORDERED: ONDANSETRON 4 MG TAB ODT SL ONE (16:00)
[2025-01-29] MEDS ORDERED: HYDROCODONE/APAP 10/325 1 TAB PO ONE (16:00)
[2025-01-29] MEDS ORDERED: OXYBUTYNIN CHLOR5 MG PO (17:42)
[2025-01-29 17:58] VITALS: BP 147/89
== END 2025-01-29 17:59 | disposition home or self-care (01) ==
LOC: ED 14:55
DX: T83.031A Leakage of indwelling urethral catheter, initial encounter (principal); R33.9 Retention of urine, unspecified; K21.9 Gastro-esophageal reflux disease without esophagitis; I10 Essential (primary) hypertension; E11.9 Type 2 diabetes mellitus without complications; Z88.8 Allergy status to other drugs, medicaments and biological substances; Z91.09 Other allergy status, other than to drugs and biological substances; Z79.84 Long term (current) use of oral hypoglycemic drugs; Z79.899 Other long term (current) drug therapy
CPT/HCPCS: 99283; A9270

== ENCOUNTER 2025-06-26 20:32 | Inpatient (IN) | payer BC, OTHER ==
[~2025-06-26] VITALS: Ht 190.5 cm; Wt 127.5 kg
[~2025-06-26 20:32] MED LIST changes: +IBU-200200 MG PO; +OXYBUTYNIN CHLOR5 MG PO
[2025-06-26] MEDS ORDERED: SODIUM CHLORIDE 0.9% 1,000 ML IV ONE ×2 (20:45→22:00)
[2025-06-26 20:55] LABS: BASOPHILS 0.9 % (0.2-1.2); EOSINOPHILS 4.1 % (0.8-7.0); LYMPHOCYTES 3.5 % (21.8-53.1); MCH 29.3 PG (25.7-32.2); MCHC 33.6 g/dL (32.3-36.5); MCV 87.3 fL (79.0-92.2); MONOCYTES 4.1 % (5.3-12.2); NEUTROPHILS 87.1 % (34.0-67.9); RBC 6.79 M/uL (4.63-6.08)
[2025-06-26] MEDS ORDERED: HYDROmorphone HCL 1 MG/ML SYR IV ONE (21:00)
[2025-06-26 21:06] LABS: INR 0.92 (0.80-1.30); PROTIME 12.0 Sec (11.2-14.2)
[2025-06-26 21:08] LABS: SMEAR REVIEW BLOOD SEE COMMENTS
[2025-06-26] MEDS ORDERED: CEFTRIAXONE SODIUM 2 GM VIAL ONE (21:09)
[2025-06-26] MEDS ORDERED: NOREPINEPHRINE BITARTRATE 0 ML IV ONE (21:09)
[2025-06-26 21:11] LABS: ALT (SGPT) 42.0 U/L (14-59); AST (SGOT) 23.0 U/L (15-37); GLOMERULAR FILTRATION RATE,EST 43.0 mL/min (>60); PROTEIN, TOTAL 9.0 g/dL (6.4-8.2); UREA NITROGEN 36.0 mg/dL (7-18)
[2025-06-26] MEDS ORDERED: NOREPINEPHRINE BITARTRATE 250 ML IV SCH (21:15)
[2025-06-26 21:18] LABS: LACTIC ACID, BLOOD 2.2 mmol/L (0.4-2.0)
[2025-06-26] MEDS ORDERED: SODIUM CHLORIDE 0.9% 1,000 ML IV PRN (21:30)
[2025-06-26] MEDS ORDERED: SODIUM CHLORIDE 0.9% 500 ML IV PRN (22:00)
[2025-06-26 22:33] LABS: BLOOD/HGB, URINE NEGATIVE (Negative); KETONE, URINE NEGATIVE (Negative); LEUK ESTERASE, URINE NEGATIVE (negative); NITRITE, URINE NEGATIVE (negative)
[2025-06-26 22:36] LABS: INFLUENZA B NAA NEGATIVE (NEGATIVE); RESPIRATORY SYNCYTIAL VIR NAA NEGATIVE (NEGATIVE)
[2025-06-27] VITALS (13 sets, daily range): BP systolic 90–138; BP diastolic 53–77
[2025-06-27] MEDS ORDERED: ACETAMINOPHEN 325 MG TAB PO PRN ×2 (01:30→18:15)
[2025-06-27] MEDS ORDERED: HYDROmorphone HCL 1 MG/ML SYR IV PRN (01:30)
[2025-06-27] MEDS ORDERED: DEXTROSE 5% - LACTATED RINGERS 1,000 ML IV SCH (01:30)
[2025-06-27] MEDS ORDERED: PROCHLORPERAZINE EDISYLATE 10 MG/2 ML VIAL IV PRN (01:45)
[2025-06-27] MEDS ORDERED: DEXTROSE 5% - LACTATED RINGERS 1,000 ML IV ONE (01:45)
--- NOTE | 2025-06-27 03:00 | NUR ---
REPORT RECEIVED FROM BENEFITS CLERK. pt ARRIVED TO THE FLOOR VIA STRETCHER. pt ABLE TO GET UP AND WALK TO BED. ASSESSMENT, ADMISSION, AND VITAL SIGNS DONE. CPOX ON. TELE #6 ON. IV'S ASSESSED, WNL. pt ORIENTATED TO THE . pt DENIES ANY OTHER NEEDS AT THIS TIME. CALL LIGHT WITHIN REACH.
--- NOTE | 2025-06-27 03:35 | NUR ---
THIS RN CALLED THE MD DUE TO pt'S CRITICAL LAB OF LACTIC 3.0. VSS EXCEPT HR 117. NEW ORDERS RECEIVED AND VERIFIED WITH REPEAT BACK METHOD.
[2025-06-27] MEDS ORDERED: LACTATED RINGER'S 1,000 ML IV ONE (03:45)
--- NOTE | 2025-06-27 04:36 | NUR ---
CALL LIGHT ANSWERED. PT NEEDED TO USE BATHROOM. PT SBA TO BATHROOM. PT VOIDED AND HAD BM. PT ASSISTED BACK TO BED. VITALS AND I&O OBTAINED. PT STATES NO FURTHER NEEDS AT THIS TIME. CALL LIGHT WITHIN REACH.
--- NOTE | 2025-06-27 04:55 | NUR ---
pt CALLED TO USE THE BR. pt SBA FOR LINE/TUBE MANAGEMENT. pt HAD A MEDIUM LOOSE BM. pt BACK TO THE BED. pt SATTING AT 94% ON RA. pt CPOX ON. pt DENIES ANY OTHER NEEDS AT THIS TIME. CALL LIGHT WITHIN REACH.
[2025-06-27] MEDS ORDERED: PIPERACILLIN/TAZOBACTAM 4.5 GM in DEXTROSE 5% 100 ML IV SCH (06:00)
--- NOTE | 2025-06-27 07:15 | NUR ---
RECIEVED REPORT FROM CHELLE HUNTER. PT IS RESTING IN BED WITH EYES CLOSED. CPOX AT BEDSIDE. IS IN ROOM. RR EVEN AND UNLABORED. CALL LIGHT AND PERSONAL BELONGINGS ARE WITHIN REACH.
[2025-06-27 07:16] LABS: BASOPHILS 0.4 % (0.2-1.2); EOSINOPHILS 1.8 % (0.8-7.0); LYMPHOCYTES 1.7 % (21.8-53.1); MCH 29.5 PG (25.7-32.2); MCHC 34.0 g/dL (32.3-36.5); MCV 86.9 fL (79.0-92.2); MONOCYTES 5.5 % (5.3-12.2); NEUTROPHILS 90.1 % (34.0-67.9); RBC 5.42 M/uL (4.63-6.08)
[2025-06-27 07:21] LABS: ALT (SGPT) 43.0 U/L (14-59); AST (SGOT) 21.0 U/L (15-37); GLOMERULAR FILTRATION RATE,EST 64.0 mL/min (>60); PROTEIN, TOTAL 6.3 g/dL (6.4-8.2); UREA NITROGEN 30.0 mg/dL (7-18)
--- NOTE | 2025-06-27 08:11 | NUR ---
PATIENT IN BED AT THIS TIME. MEDICAL TRANSCRIPTION EDITOR CHARTED HOURLY ROUNDS. CALL LIGHT WITHIN REACH.
[2025-06-27] MEDS ORDERED: GLUCAGON,HUMAN RECOMBINANT 1 MG/ML VIAL SUB-Q PRN (08:15)
[2025-06-27] MEDS ORDERED: DEXTROSE 5% 1,000 ML IV PRN (08:15)
[2025-06-27] MEDS ORDERED: IBLOOD GLUCOSE TEST STRIP 1 EA TEST XX PRN (08:15)
[2025-06-27] MEDS ORDERED: DEXTROSE 50% 50 ML SYR IV PRN ×2 (08:15)
--- NOTE | 2025-06-27 08:15 | NUR ---
ASSISTED PT WITH IV POLE TO BR. PT IS INDEPENDENT IN ROOM. INSTRUCTED PT TO CALL WHEN FINISHED. PT VERBALIZED UNDERSTANDING.
--- NOTE | 2025-06-27 08:50 | NUR ---
Spoke with Mateusz. He states he lives in a mobile home with his . He spent yesterday elk hunting with his daughter. He became ill last night with N/V/D. He is up in the chair at this time. is sleeping on the sofa in the room. He states he has had 3 bms this morning and is feeling much better. 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 He drives. He is active and does not use any DME. He denies any financial or safety concerns. He is waiting for an US that has been scheduled. He would like to eat or drink as soon as his US is completed.
[2025-06-27] MEDS ORDERED: PANTOPRAZOLE SODIUM 40 MG/10 ML VIAL IV SCH (09:00)
[2025-06-27] MEDS ORDERED: MAGNESIUM SULFATE 2 GM/50 ML BAG IV ONE (09:00)
--- NOTE | 2025-06-27 10:32 | NUR ---
PATIENT IN BED AT THIS TIME. ALARM INVESTIGATOR CHARTED VITALS AND I&O'S. CALL LIGHT WITHIN REACH, NO FURTHER NEEDS.
--- NOTE | 2025-06-27 10:56 | NUR ---
CALL PLACED TO DR. FERNANDEZ REGARDING U/S RESULTS. DR. FERNANDEZ GAVE ORDERS TO ADVANCE PT'S DIET TO CLEAR LIQUIDS, AND ADVANCE TOLERATED. NO FURTHER ORDERS. CALL ENDED.
[2025-06-27] MEDS ORDERED: CLARITIN10 MG PO (11:06)
--- NOTE | 2025-06-27 11:10 | NUR ---
UR CLINICAL REVIEW: [facility] [place] [place], MEETS INPT FOR SMALL BOWEL OBSTRUCTION VS ILEUS. CT SHOWS DILATED BOWEL AND POSSIBLE ILEUS, IV FLUIDS, NPO FURTHER IMAGING TO BE DONE [facility] PPO INPT 06/27/2025 @ 0129 ORDER MATCHES REG AUTH PENDING, CLINICALS SENT VIA RIGHTFAX DC HOME WHEN MEDICALLY READY DC REVIEW 08/28/24
[2025-06-27] MEDS ORDERED: PATADAY2.5 ML OU (11:24)
--- NOTE | 2025-06-27 11:25 | NUR ---
MED REC COMPLETE
--- NOTE | 2025-06-27 11:29 | NUR ---
PATIENT IN BED. DIRECTOR AGENCY & STRATEGIC PARTNERSHIPS CHARTED HOURLY ROUNDS. CALL LIGHT WITHIN REACH, NO FURTHER NEEDS.
--- NOTE | 2025-06-27 11:48 | NUR ---
PT ADVANCED TO CLEARS PER DR. FERNANDEZ. PROVIDED PT WITH SUGAR FREE JUICE, JELLO, AND DIET VERENICE TWIST. PT IN CHAIR WITH PIERRE. BLOOD SUGAR CHECKED AT THIS TIME BY SARA MONTOYA. PT DENIES ANY NEEDS AT THIS TIME. CALL LIGHT AND PERSONAL BELONGINGS ARE WITHIN REACH.
[2025-06-27] MEDS ORDERED: IBLOOD GLUCOSE TEST STRIP 1 EA TEST VI SCH ×2 (12:00→14:00)
[2025-06-27] MEDS ORDERED: PHARMACY RENAL DOSE ADJUSTMENT 1 DOSE MISC PO SCH (12:00)
[2025-06-27] MEDS ORDERED: Insulin Regular, Human 100 UNIT/ML ML SUB-Q SCH ×2 (12:30→14:00)
--- NOTE | 2025-06-27 13:00 | NUR ---
ASSISTED PT WITH IV POLE TO BR. PT INDEPENDENT IN ROOM. PT VERBALIZED UNDERSTANDING TO CALL WHEN FINISHED. NO FURTHER NEEDS
[2025-06-27] MEDS ORDERED: AMLODIPINE BESYLATE 5 MG TAB PO SCH (13:35)
[2025-06-27] MEDS ORDERED: LEVOTHYROXINE SODIUM 100 MCG TAB PO SCH (13:45)
--- NOTE | 2025-06-27 14:49 | NUR ---
Patient awake, alert and oriented x3, no acute distress. Patient denies nausea, he reports he tolerated his lunch fairly. Patient states he "backed off" his solid foods after they started making him have an upset tummy. Patient reports the nausea has resolved.
--- NOTE | 2025-06-27 15:06 | NUR ---
PT SITTING UP IN CHAIR WATCHING TV. PT REPORTED ACID REFLUX AND REQUESTED SALTINE CRACKERS, WHICH WERE PROVIDED ALONG WITH FRESH ICE WATER. PT DENIES ANY FURTHER NEEDS AT THIS TIME. CALL LIGHT AND PERSONAL BELONGINGS ARE WITHIN REACH.
--- NOTE | 2025-06-27 17:11 | NUR ---
PT RESTING IN BED, WATCHING TV. AT BEDSIDE. RR EVEN AND UNLABORED. CALL LIGHT AND PERSONAL BELONGINGS ARE WITHIN REACH.
--- NOTE | 2025-06-27 17:45 | NUR ---
PATIENT IN BED AT THIS TIME. AIRCONDITIONING ENGINEER CHARTED VITALS AND I&O'S. CALL LIGHT WITHIN REACH, NO FRUTHER NEEDS.
--- NOTE | 2025-06-27 17:56 | NUR ---
PATIENT CALLED REPORTING A HEADACHE. DR AVILA NOTIFIED AND STATES HE WILL ADD ORDERS. WITH NO FURTHER ORDERS AT THIS TIME. CALL ENDED.
--- NOTE | 2025-06-27 18:25 | NUR ---
PATIENT MEDICATED PER EMAR. PATIENT SITTING UP IN HIS CHAIR WITH HIS AT BEDSIDE. FRESH ICE WATER PROVIDED. PATIENT IS WITHOUT FURTHER NEEDS AT THIS TIME. CALL LIGHT AND PERSONAL BELONGINGS ARE WITHIN REACH.
--- NOTE | 2025-06-27 19:20 | NUR ---
REPORT RECEIVED FROM CHELLE BRIDGES. PATIENT SITTING UPRIGHT IN CHAIR, SO IN ROOM. RESPIRATIONS EVEN AND UNLABORED, CPOX AT BEDSIDE. HE DENIES ANY NEEDS, CALL LIGHT IN REACH
--- NOTE | 2025-06-27 19:50 | NUR ---
RT SPOKE WITH GREGORIA (AKA: BAILEE) AND PREFERS NOT USE A HOSPITAL OWNED CPAP/BIPAP. BAILEE STATES THAT HE DOES NOT LIKE THE PRESSURE BLOWING IN HIS FACE AND DOES NOT WEAR HIS UNIT AT HOME OFTEN.
--- NOTE | 2025-06-27 20:38 | NUR ---
VS OBTAINED AND RECORDED. INTAKE AND OUTPUT DOCUMENTED. ASSESSMENT COMPLETE. PATIENT IN BED, RESTING. REPORTS 2/10 HEADACHE. COLD RAG PROVIDED FOR HEAD. RESPIRATIONS EVEN AND UNLABORED. ACTIVE BOWEL TONES, DENIES ABD PAIN. DENIES FURTHER NEEDS, CALL LIGHT IN REACH
--- NOTE | 2025-06-27 22:44 | EKG ---
[facility] [address] [place] [address] Signed Sinus tachycardia Left posterior fascicular block Possible Anterior infarct , age undetermined Abnormal ECG When compared with ECG of 23-JAN-2025 09:54, Vent. rate has increased BY 43 BPM Left posterior fascicular block is now present Confirmed by Fermin Avila MD () on 06/27/2025 10:43:47 PM Electronically Signed By: FERMIN AVILA MD 06/27/25 2244 PATIENT NAME: GREGORIA CHAMPION Electrocardiogram DATE OF : 63 PHYSICIAN: FERMIN AVILA MD REPORT #: [id number] REPORT IS CONFIDENTIAL AND NOT TO BE RELEASED WITHOUT AUTHORIZATION
--- NOTE | 2025-06-27 23:25 | NUR ---
ROUNDED ON PATIENT, PATIENT RESTING WITH EYES CLOSED, RESPIRATIONS EVEN AND UNLABORED. CPOX AT BEDSIDE. NO NEEDS, CALL LIGHT IN REACH
[2025-06-28] VITALS (7 sets, daily range): BP systolic 113–145; BP diastolic 64–80
--- NOTE | 2025-06-28 01:58 | NUR ---
SHOE POLISHER OBTAINED VITALS AND I&O. PT STATES NO NEEDS AT THIS TIME. CALL LIGHT WITHIN REACH.
--- NOTE | 2025-06-28 03:36 | NUR ---
PATIENT RESTING WITH EYES CLOSED, RESPIRATIONS EVEN AND UNLABORED. TELE BATTERY REPLACED, CPOX IN PLACE. NO NEEDS IDENTIFIED, CALL LIGHT N REACH
[2025-06-28 05:20] LABS: BASOPHILS 0.4 % (0.2-1.2); EOSINOPHILS 10.9 % (0.8-7.0); LYMPHOCYTES 10.9 % (21.8-53.1); MCH 29.1 PG (25.7-32.2); MCHC 33.5 g/dL (32.3-36.5); MCV 86.8 fL (79.0-92.2); MONOCYTES 12.6 % (5.3-12.2); NEUTROPHILS 64.8 % (34.0-67.9); RBC 5.36 M/uL (4.63-6.08)
--- NOTE | 2025-06-28 05:20 | NUR ---
CALL LIGHT ANSWERED, PATIENT GIVEN PRN PAIN MEDICATION FOR 4/10 DISCOMFORT IN HIS KNEES. VS OBTAINED AND RECORDED, OUTPUT DOCUMENTED. PATIENT UP AND AMBULATING IN HALLWAY WITH EVEN GAIT. HE DENIES ANY ABD PAIN, STATES MULTIPLE BOWEL MOVEMENTS THROUGHOUT THE NIGHT WHICH HE DESCRIBES ARE "GETTING MORE NORMAL BUT STILL LOOSE". HE DENIES ANY OTHER NEEDS, CALL LIGHT IN REACH
[2025-06-28 05:34] LABS: ALT (SGPT) 46.0 U/L (14-59); AST (SGOT) 25.0 U/L (15-37); GLOMERULAR FILTRATION RATE,EST 84.0 mL/min (>60); PHOSPHORUS, INORGANIC 2.1 mg/dL (2.5-4.9); PROTEIN, TOTAL 6.6 g/dL (6.4-8.2); UREA NITROGEN 19.0 mg/dL (7-18)
[2025-06-28] MEDS ORDERED: SOD PHOS MONO/SOD PHOS DIBAS 250 MG TAB PO ONE (08:15)
[2025-06-28] MEDS ORDERED: PANTOPRAZOLE SODIUM 40 MG TABEC PO SCH (09:00)
--- NOTE | 2025-06-28 10:56 | NUR ---
ASMIN TYLENOL 650MG PO AT THIS TIME FOR REPORTS OF 3/10 HEADACHE.
--- NOTE | 2025-06-28 11:00 | NUR ---
Spoke with Ryan and his . Pt is close to discharge. FU appt made with [facility] as pt will need a Cscope and will require prior auth. Appt 07/04/25 at 8:30. and pt updated. They deny further needs and will drive pt. home.
--- NOTE | 2025-06-28 11:05 | NUR ---
DISCHARGE REVIEW: NO BARRIER TO DC NOTED PATIENT TO DC HOME WITH FAMILY WHEN STABLE ADD:1-2 DAYS INPT NO ACTIONS REQUIRED
[2026-06-27] MEDS ORDERED: Insulin Regular, Human 100 UNIT/ML ML SUB-Q SCH ×2 (08:00→12:00)
== END 2025-06-28 11:50 | disposition home or self-care (01) | DRG 389 ==
LOC: ED 20:32 → MS 06-27 01:30
PROVIDERS: Family Medicine; ADMIT Family Medicine; ATTEND Family Medicine
PROC: 0D9670Z Drainage of Stomach with Drainage Device, Via Natural or Artificial Opening (ICD-10-PCS; principal; 2025-06-27)
PROC: 3E03329 Introduction of Other Anti-infective into Peripheral Vein, Percutaneous Approach (ICD-10-PCS; 2025-06-27)
DX: K56.7 Ileus, unspecified (principal); E87.20 Acidosis, unspecified; E78.00 Pure hypercholesterolemia, unspecified; K52.89 Other specified noninfective gastroenteritis and colitis; K21.9 Gastro-esophageal reflux disease without esophagitis; E03.9 Hypothyroidism, unspecified; I10 Essential (primary) hypertension; E11.9 Type 2 diabetes mellitus without complications; Z90.89 Acquired absence of other organs; Z98.890 Other specified postprocedural states; Z87.19 Personal history of other diseases of the digestive system; Z88.8 Allergy status to other drugs, medicaments and biological substances; Z91.048 Other nonmedicinal substance allergy status; Z79.899 Other long term (current) drug therapy; Z79.84 Long term (current) use of oral hypoglycemic drugs; Z79.1 Long term (current) use of non-steroidal anti-inflammatories (NSAID); Z79.890 Hormone replacement therapy
CPT/HCPCS: 36415; 71045; 74177; 76705; 80053; 81003; 83036; 83605; 83735; 84100; 84484; 85025; 85060; 85610; 85730; 87502; 93005; 93010; 94762; 94799; A9270; J0696; J1171; J1790; J2405; J2470; J2543; J3475; J7030; J7040; J7121; Q9967; U0002